=== PATIENT | male | born 1950 | race Two or more races ===

== ENCOUNTER 2018-04-08 14:06 | Inpatient (IN) | payer MEDICARE, OTHER ==
[~2018-04-08] VITALS: Ht 180.3 cm; Wt 68.1 kg
[2018-04-08] MEDS ORDERED: FOLIC ACID 1 MG, THIAMINE HCL 100 MG, MVI, ADULT NO.1 10 ML in DEXTROSE 5% WATER 1,000 ML IV ONE ×4 (17:15)
[2018-04-08 17:27] LABS: BASOPHILS % 0.3 % (0.0-2.0); EOSINOPHILS % 0.3 % (0.0-5.0); HEMATOCRIT. 39.5 % (42.0-52.0); HEMOGLOBIN. 12.2 g/dL (14.0-18.0); MEAN CORPUSCULAR HEMOGLOBIN 23.1 pg (28.0-32.0); MEAN CORPUSCULAR VOLUME 74.8 fL (80.0-94.0); MEAN PLATELET VOLUME 8.6 fl (7.4-10.4); MONOCYTES % 6.4 % (2.0-8.0); PLATELET 265 x1000/uL (130-400); RED BLOOD CELL COUNT 5.27 mill/uL (4.7-6.1); RED CELL DISTRIBUTION WIDTH 16.4 % (11.6-14.6)
[2018-04-08 17:33] LABS: CHLORIDE 106 mEq/L (98-107)
[2018-04-08 17:35] LABS: PARTIAL THROMBOPLASTIN TIME 35.2 sec (23.4-31.0)
[2018-04-08 17:37] LABS: ETHANOL BLOOD < 10 mg/dL
[2018-04-08 17:41] LABS: CREATINE KINASE 382 IU/L (39-308)
[2018-04-08 17:44] LABS: CREATINE KINASE MB FRACTION 20.9 ng/mL (0.5-3.6)
[2018-04-08] MEDS ORDERED: LORAZEPAM 2MG/ML CPJ IV ONE (18:30)
[2018-04-08] MEDS ORDERED: HYDROCODONE/APAP 7.5/325MG 1 TAB TABLET PO PRN (20:00)
[2018-04-08] MEDS ORDERED: HYDRALAZINE 20MG/ML VIAL IV PRN (20:00)
[2018-04-08] MEDS ORDERED: DIPHENHYDRAMINE 50MG/ML VIAL IV PRN (20:00)
[2018-04-08] MEDS ORDERED: IPRATROPIUM/ALBUTEROL 0.5-3(2.5)MG/3ML NEB INH PRN (20:00)
[2018-04-08] MEDS ORDERED: MVI, ADULT NO.1 10 ML, FOLIC ACID 1 MG, THIAMINE HCL 100 MG in SODIUM CHLORIDE 0.9% 1,0... IV SCH ×4 (20:00)
[2018-04-08] MEDS ORDERED: DOCUSATE SODIUM 100MG CAPSULE PO PRN (20:00)
[2018-04-08] MEDS ORDERED: CLONIDINE 0.1MG TABLET PO PRN (20:00)
[2018-04-08] MEDS ORDERED: MAGNESIUM/ALUMINUM HYDROXIDE/SIMETHICONE 30ML UDC PO PRN (20:00)
[2018-04-08] MEDS ORDERED: LEVOFLOXACIN 500MG PREMIX 100 ML IV SCH (20:00)
[2018-04-08] MEDS ORDERED: LORAZEPAM 2MG/ML CPJ IV PRN ×2 (20:00→20:15)
[2018-04-08] MEDS ORDERED: HYDROMORPHONE HCL/PF 2MG/ML CPJ IV PRN (20:00)
[2018-04-08] MEDS ORDERED: NA PHOS,M-B/NA PHOS,DI-BA ENEMA 118ML PR PRN (20:00)
[2018-04-08] MEDS ORDERED: ACETAMINOPHEN 325MG TABLET PO PRN (20:00)
[2018-04-08] MEDS ORDERED: ONDANSETRON HCL 4MG/2ML INJ IV PRN (20:00)
[2018-04-08] MEDS ORDERED: GUAIFENESIN 200MG/10ML SUGAR FREE UDC PO PRN (20:00)
[2018-04-08 21:19] LABS: CLARITY URINE CLOUDY (CLEAR); COLOR URINE YELLOW (YELLOW); KETONES URINE NEGATIVE (NEGATIVE); LEUKOCYTE ESTERASE URINE 3+ (NEGATIVE); NITRITE URINE POSITIVE (NEGATIVE); OCCULT BLOOD URINE 1+ (NEGATIVE); PH URINE 7.5 (4.5-8.0); PROTEIN URINE 2+ (NEGATIVE); SPECIFIC GRAVITY URINE 1.015 (1.005-1.030); UROBILINOGEN URINE 0.2 E.U./dL (0.2-1.0)
[2018-04-08 21:35] LABS: *COCAINE SCREEN URINE NEGATIVE (NEGATIVE)
[2018-04-08 21:36] LABS: *BARBITURATES SCREEN URINE NEGATIVE (NEGATIVE); CANNABINOID URINE SCREEN NEGATIVE (NEGATIVE); METHADONE URINE SCREEN NEGATIVE (NEGATIVE); OPIATES URINE SCREEN NEGATIVE (NEGATIVE); PHENCYCLIDINE URINE SCREEN NEGATIVE (NEGATIVE)
[2018-04-08 21:37] LABS: *AMPHETAMINES SCREEN URINE NEGATIVE (NEGATIVE); *BENZODIAZEPINES SCREEN URINE NEGATIVE (NEGATIVE)
[2018-04-08 22:00] VITALS: BP 151/78
[2018-04-08 22:45] VITALS: BP 166/93
[2018-04-08] MEDS: SODIUM CHLORIDE 0.45% 1,000 ML IV SCH (23:02)
[2018-04-08] MEDS: SODIUM CHLORIDE 0.9% INJ 3ML FLUSH IVF SCH (23:03)
[2018-04-08] MEDS: LEVOFLOXACIN 500MG PREMIX 100 ML IV SCH (23:04)
[2018-04-08 23:21] LABS: CREATINE KINASE 377 IU/L (39-308)
[2018-04-08 23:22] LABS: CREATINE KINASE MB FRACTION 21.5 ng/mL (0.5-3.6)
[2018-04-09] VITALS: BP 151/78
[2018-04-09 04:00] VITALS: BP 144/89
[2018-04-09] MEDS: SODIUM CHLORIDE 0.9% INJ 3ML FLUSH IVF SCH ×3 (06:48→21:25)
[2018-04-09 06:50] LABS: HEMATOCRIT. 37.6 % (42.0-52.0); HEMOGLOBIN. 11.9 g/dL (14.0-18.0); MEAN CORPUSCULAR HEMOGLOBIN 23.3 pg (28.0-32.0); MEAN CORPUSCULAR VOLUME 73.8 fL (80.0-94.0); MEAN PLATELET VOLUME 8.9 fl (7.4-10.4); PLATELET 242 x1000/uL (130-400); RED BLOOD CELL COUNT 5.09 mill/uL (4.7-6.1); RED CELL DISTRIBUTION WIDTH 16.1 % (11.6-14.6)
[2018-04-09 06:54] LABS: CHLORIDE 102 mEq/L (98-107)
[2018-04-09 07:12] LABS: LDL CHOLESTEROL 60 mg/dL (5-100)
[2018-04-09 07:14] LABS: CREATINE KINASE 355 IU/L (39-308)
[2018-04-09 07:15] LABS: CREATINE KINASE MB FRACTION 20.4 ng/mL (0.5-3.6); HDL CHOLESTEROL 97 mg/dL (40-59)
[2018-04-09 07:16] LABS: T4 FREE 1.14 ng/dL (0.76-1.46)
[2018-04-09 08:00] VITALS: BP 136/74
[2018-04-09] MEDS: ENOXAPARIN 40MG/0.4ML SYR SUBCUT SCH (08:17)
[2018-04-09 11:47] LABS: PLATELET ESTIMATE NORMAL
[2018-04-09 12:00] VITALS: BP 131/68
[2018-04-09] MEDS: SODIUM CHLORIDE 0.45% 1,000 ML IV SCH (14:25)
[2018-04-09 16:55] VITALS: BP 119/68
[2018-04-09 20:00] VITALS: BP 156/82
[2018-04-10] VITALS: BP 146/72
[2018-04-10] MEDS: LEVOFLOXACIN 500MG PREMIX 100 ML IV SCH ×2 (00:19→22:58)
[2018-04-10 04:00] VITALS: BP 110/52
[2018-04-10] MEDS: SODIUM CHLORIDE 0.45% 1,000 ML IV SCH ×2 (04:15→18:00)
[2018-04-10] MEDS: SODIUM CHLORIDE 0.9% INJ 3ML FLUSH IVF SCH ×3 (05:03→22:08)
[2018-04-10 08:00] VITALS: BP 127/68
[2018-04-10] MEDS: ENOXAPARIN 40MG/0.4ML SYR SUBCUT SCH (10:06)
[2018-04-10 12:00] VITALS: BP 133/79
[2018-04-10 20:00] VITALS: BP 164/88
[2018-04-11] VITALS: BP 151/79
[2018-04-11 04:00] VITALS: BP 108/68
[2018-04-11] MEDS: SODIUM CHLORIDE 0.9% INJ 3ML FLUSH IVF SCH (06:43)
[2018-04-11] MEDS: SODIUM CHLORIDE 0.45% 1,000 ML IV SCH (07:20)
[2018-04-11 08:00] VITALS: BP 155/101
[2018-04-11] MEDS: ENOXAPARIN 40MG/0.4ML SYR SUBCUT SCH (09:13)
[2018-04-11 12:12] VITALS: BP 134/77
[2018-04-11 16:00] VITALS: BP 133/79
[2018-04-11 18:58] VITALS: BP 133/79
== END 2018-04-11 19:47 | DRG 605 ==
LOC: EDBD 14:36 → ER 14:36 → 8WST 18:28 → EDBEDREQTM 18:30 → EDBEDREQ 18:30 → ENRESERV 20:17
PROVIDERS: ADMIT Internal Medicine; ATTEND Internal Medicine
DX: S60.222A Contusion of left hand, initial encounter (principal); M62.82 Rhabdomyolysis; R26.81 Unsteadiness on feet; F17.210 Nicotine dependence, cigarettes, uncomplicated; R29.6 Repeated falls; D72.829 Elevated white blood cell count, unspecified; W18.30XA Fall on same level, unspecified, initial encounter; Y93.89 Activity, other specified; Z59.0 Homelessness; Y92.89 Other specified places as the place of occurrence of the external cause; Y99.8 Other external cause status
CPT/HCPCS: 36415; 71045; 72170; 73130; 80061; 80305; 82550; 82553; 83735; 83880; 84439; 84443; 84484; 86850; 86900; 87077; 87186; 93005; 96374; 97116; 97162; 99285; G0482; J1200; J1650; J1956; J2060; J3411; J3490; J7070

== ENCOUNTER 2019-03-28 15:30 | Inpatient (IN) | payer MEDICARE, MEDICAID ==
[~2019-03-28] VITALS: Ht 175.3 cm; Wt 70.3 kg
[2019-03-28 16:24] LABS: BASOPHILS % 2.1 % (0.0-2.0); EOSINOPHILS % 3.9 % (0.0-5.0); HEMATOCRIT. 40.7 % (42.0-52.0); HEMOGLOBIN. 12.8 g/dL (14.0-18.0); LYMPHOCYTES % 38.2 % (20.0-50.0); MEAN CORPUSCULAR HEMOGLOBIN 22.3 pg (28.0-32.0); MEAN PLATELET VOLUME 7.7 fl (7.4-10.4); MONOCYTES % 11.8 % (2.0-8.0); PLATELET 257 x1000/uL (130-400); RED BLOOD CELL COUNT 5.73 mill/uL (4.7-6.1); RED CELL DISTRIBUTION WIDTH 18.3 % (11.6-14.6)
[2019-03-28 16:32] LABS: CHLORIDE 106 mEq/L (98-107)
[2019-03-28 16:37] LABS: ETHANOL BLOOD < 10 mg/dL
[2019-03-28 16:59] LABS: CLARITY URINE CLOUDY (CLEAR); COLOR URINE YELLOW (YELLOW); KETONES URINE NEGATIVE (NEGATIVE); LEUKOCYTE ESTERASE URINE 3+ (NEGATIVE); NITRITE URINE POSITIVE (NEGATIVE); OCCULT BLOOD URINE TRACE (NEGATIVE); PROTEIN URINE 1+ (NEGATIVE); SPECIFIC GRAVITY URINE 1.009 (1.005-1.030); UROBILINOGEN URINE 0.2 E.U./dL (0.2-1.0)
[2019-03-28 17:10] LABS: *AMPHETAMINES SCREEN URINE NEGATIVE (NEGATIVE); CANNABINOID URINE SCREEN NEGATIVE (NEGATIVE); METHADONE URINE SCREEN NEGATIVE (NEGATIVE); OPIATES URINE SCREEN NEGATIVE (NEGATIVE); PHENCYCLIDINE URINE SCREEN NEGATIVE (NEGATIVE)
[2019-03-28 17:11] LABS: *BARBITURATES SCREEN URINE NEGATIVE (NEGATIVE); *BENZODIAZEPINES SCREEN URINE NEGATIVE (NEGATIVE); *COCAINE SCREEN URINE NEGATIVE (NEGATIVE)
[2019-03-28] MEDS ORDERED: ACETAMINOPHEN 325MG TABLET PO PRN (18:00)
[2019-03-28] MEDS ORDERED: DOCUSATE SODIUM 100MG CAPSULE PO PRN (18:00)
[2019-03-28] MEDS ORDERED: IPRATROPIUM/ALBUTEROL 0.5-3(2.5)MG/3ML NEB NEB PRN (18:00)
[2019-03-28] MEDS ORDERED: NA PHOS,M-B/NA PHOS,DI-BA ENEMA 118ML PR PRN (18:00)
[2019-03-28] MEDS ORDERED: HYDROCODONE/ACETAMINOPHEN 5/325MG TABLET PO PRN (18:00)
[2019-03-28] MEDS ORDERED: CLONIDINE 0.1MG TABLET PO PRN (18:00)
[2019-03-28] MEDS ORDERED: DIPHENHYDRAMINE 50MG/ML VIAL IV PRN (18:00)
[2019-03-28] MEDS ORDERED: ONDANSETRON HCL 4MG/2ML INJ IV PRN (18:00)
[2019-03-28] MEDS ORDERED: MAGNESIUM/ALUMINUM HYDROXIDE/SIMETHICONE 30ML UDC PO PRN (18:00)
[2019-03-28] MEDS ORDERED: GUAIFENESIN 200MG/10ML SUGAR FREE UDC PO PRN (18:00)
[2019-03-28] MEDS ORDERED: MORPHINE SULFATE 2 MG/ML CPJ (NOT FOR IM USE) IV PRN (18:00)
[2019-03-28] MEDS ORDERED: LORAZEPAM 2MG/ML CPJ IV PRN (18:00)
[2019-03-28] MEDS: SODIUM CHLORIDE 0.45% 1,000 ML IV SCH (18:28)
[2019-03-28] MEDS ORDERED: LEVOFLOXACIN 500MG PREMIX 100 ML IV NR (19:00)
[2019-03-28] MEDS ORDERED: ENOXAPARIN 40MG/0.4ML SYR SUBCUT SCH (19:00)
[2019-03-28 21:11] LABS: CHLORIDE 107 mEq/L (98-107)
[2019-03-29 00:45] VITALS: BP 158/80
[2019-03-29] MEDS ORDERED: MAG-4 PO (03:01)
[2019-03-29] MEDS ORDERED: MULT-1146 PO (03:01)
[2019-03-29] MEDS ORDERED: CLON-457 PO (03:01)
[2019-03-29] MEDS ORDERED: GABA-531 PO (03:01)
[2019-03-29] MEDS ORDERED: DOCU-138 PO (03:01)
[2019-03-29] MEDS ORDERED: TOPUD PO (03:01)
[2019-03-29 04:00] VITALS: BP 140/88
[2019-03-29 08:00] VITALS: BP 122/73
[2019-03-29 08:19] LABS: BASOPHILS % 0.9 % (0.0-2.0); EOSINOPHILS % 5.3 % (0.0-5.0); HEMATOCRIT. 39.5 % (42.0-52.0); HEMOGLOBIN. 12.5 g/dL (14.0-18.0); LYMPHOCYTES % 45.9 % (20.0-50.0); MEAN CORPUSCULAR HEMOGLOBIN 22.1 pg (28.0-32.0); MEAN CORPUSCULAR VOLUME 69.9 fL (80.0-94.0); MEAN PLATELET VOLUME 8.4 fl (7.4-10.4); MONOCYTES % 11.5 % (2.0-8.0); NEUTROPHILS % 36.4 % (40.0-76.0); PLATELET 269 x1000/uL (130-400); RED BLOOD CELL COUNT 5.65 mill/uL (4.7-6.1)
[2019-03-29 08:31] LABS: CHLORIDE 107 mEq/L (98-107)
[2019-03-29 08:39] LABS: LDL CHOLESTEROL 115 mg/dL (5-100)
[2019-03-29 08:40] LABS: HDL CHOLESTEROL 52 mg/dL (40-59)
[2019-03-29] MEDS: ASPIRIN 81MG EC TABLET PO SCH (09:13)
[2019-03-29] MEDS: ENOXAPARIN 40MG/0.4ML SYR SUBCUT SCH (09:14)
[2019-03-29 12:00] VITALS: BP 160/67
[2019-03-29 13:00] LABS: PLATELET ESTIMATE NORMAL
[2019-03-29 16:00] VITALS: BP 133/83
[2019-03-29] MEDS: SODIUM CHLORIDE 0.45% 1,000 ML IV SCH (16:29)
[2019-03-29 20:00] VITALS: BP 130/76
[2019-03-29] MEDS ORDERED: LEVOFLOXACIN 500MG PREMIX 100 ML IV SCH (20:00)
[2019-03-29 20:28] LABS: VITAMIN B12 SERUM 615 pg/mL (211-911)
[2019-03-29] MEDS: AMLODIPINE 5MG TABLET PO SCH (20:54)
[2019-03-29] MEDS: ATORVASTATIN CALCIUM 20MG TABLET PO SCH (20:54)
[2019-03-29] MEDS: LEVOFLOXACIN 500MG PREMIX 100 ML IV SCH (21:54)
[2019-03-30] VITALS: BP 137/62
[2019-03-30 04:00] VITALS: BP 133/70
[2019-03-30 08:00] VITALS: BP 137/67
[2019-03-30] MEDS: ASPIRIN 81MG EC TABLET PO SCH (09:03)
[2019-03-30] MEDS: AMLODIPINE 5MG TABLET PO SCH ×2 (09:03→20:34)
[2019-03-30] MEDS: ENOXAPARIN 40MG/0.4ML SYR SUBCUT SCH (09:04)
[2019-03-30 12:00] VITALS: BP 121/74
[2019-03-30] MEDS: SODIUM CHLORIDE 0.45% 1,000 ML IV SCH (12:35)
[2019-03-30 16:00] VITALS: BP 140/70
[2019-03-30 20:00] VITALS: BP 134/62
[2019-03-30] MEDS: ATORVASTATIN CALCIUM 20MG TABLET PO SCH (20:34)
[2019-03-30] MEDS: LEVOFLOXACIN 500MG PREMIX 100 ML IV SCH (20:34)
[2019-03-31] VITALS: BP 143/97
[2019-03-31 04:00] VITALS: BP 159/93
[2019-03-31] MEDS: SODIUM CHLORIDE 0.45% 1,000 ML IV SCH (05:56)
[2019-03-31 07:34] LABS: EOSINOPHILS % 3.8 % (0.0-5.0); HEMATOCRIT. 42.9 % (42.0-52.0); LYMPHOCYTES % 30.8 % (20.0-50.0); MEAN CORPUSCULAR HEMOGLOBIN 22.7 pg (28.0-32.0); MEAN CORPUSCULAR VOLUME 69.8 fL (80.0-94.0); MEAN PLATELET VOLUME 8.3 fl (7.4-10.4); MONOCYTES % 13.3 % (2.0-8.0); NEUTROPHILS % 51.1 % (40.0-76.0); PLATELET 294 x1000/uL (130-400); RED BLOOD CELL COUNT 6.15 mill/uL (4.7-6.1); RED CELL DISTRIBUTION WIDTH 17.9 % (11.6-14.6)
[2019-03-31 08:00] VITALS: BP 147/94
[2019-03-31 08:35] LABS: CHLORIDE 103 mEq/L (98-107)
[2019-03-31] MEDS: ENOXAPARIN 40MG/0.4ML SYR SUBCUT SCH (09:42)
[2019-03-31] MEDS: AMLODIPINE 5MG TABLET PO SCH ×2 (09:42→21:19)
[2019-03-31] MEDS: ASPIRIN 81MG EC TABLET PO SCH (09:42)
[2019-03-31 20:00] VITALS: BP 137/96
[2019-03-31 20:24] VITALS: BP 141/68
[2019-03-31] MEDS: ATORVASTATIN CALCIUM 20MG TABLET PO SCH (21:19)
[2019-03-31] MEDS: LEVOFLOXACIN 500MG PREMIX 100 ML IV SCH (21:19)
== END 2019-03-31 23:10 | DRG 689 ==
LOC: ER 15:30 → 5WST 16:47 → ENRESERV 22:46
PROVIDERS: ADMIT Internal Medicine; ATTEND Internal Medicine
DX: N39.0 Urinary tract infection, site not specified (principal); G93.41 Metabolic encephalopathy; E46 Unspecified protein-calorie malnutrition; R65.10 Systemic inflammatory response syndrome (SIRS) of non-infectious origin without acute organ dysfunction; I10 Essential (primary) hypertension; E78.00 Pure hypercholesterolemia, unspecified; E78.5 Hyperlipidemia, unspecified; B96.89 Other specified bacterial agents as the cause of diseases classified elsewhere; D64.9 Anemia, unspecified; Z79.899 Other long term (current) drug therapy; Z86.73 Personal history of transient ischemic attack (TIA), and cerebral infarction without residual deficits; Z68.22 Body mass index [BMI] 22.0-22.9, adult
CPT/HCPCS: 36415; 71045; 80048; 80053; 80061; 80305; 80320; 81003; 82607; 82962; 83605; 83735; 84443; 84484; 85025; 87077; 87186; 93005; 96361; 96365; 96372; J1650; J1956; J2060; G0480

== ENCOUNTER 2020-08-06 20:22 | Inpatient (IN) | payer MEDICARE, MEDICAID ==
[~2020-08-06] VITALS: Ht 180.3 cm; Wt 63.5 kg
[~2020-08-06 20:22] MED LIST: CLON-457 PO; DOCU-138 PO; GABA-532 PO; MAG-4 PO; MULT-1146 PO; TOPUD PO
[2020-08-06] MEDS ORDERED: SODIUM CHLORIDE 0.9% 1,000 ML IV ONE (21:30)
[2020-08-07 00:04] LABS: BASOPHILS % 0.4 % (0.0-2.0); HEMOGLOBIN. 14.7 g/dL (14.0-18.0); LYMPHOCYTES % 18.5 % (20.0-50.0); MEAN CORPUSCULAR HEMOGLOBIN 22.2 pg (28.0-32.0); MEAN CORPUSCULAR VOLUME 73.9 fL (80.0-94.0); MEAN PLATELET VOLUME 9.2 fl (7.4-10.4); MONOCYTES % 12.6 % (2.0-8.0); NEUTROPHILS % 67.5 % (40.0-76.0); PLATELET 350 x1000/uL (130-400); RED BLOOD CELL COUNT 6.63 mill/uL (4.7-6.1); RED CELL DISTRIBUTION WIDTH 16.6 % (11.6-14.6)
[2020-08-07 00:12] LABS: CHLORIDE 114 mEq/L (98-107)
[2020-08-07] MEDS ORDERED: SODIUM POLYSTYRENE SULFONATE 15 G/60 ML BOT PO NR (18:15)
[2020-08-07] MEDS ORDERED: DOCUSATE SODIUM 100MG CAPSULE PO PRN (18:15)
[2020-08-07] MEDS ORDERED: HYDROCODONE/ACETAMINOPHEN 5/325MG TABLET PO PRN (18:15)
[2020-08-07] MEDS ORDERED: CLONIDINE 0.1MG TABLET PO PRN (18:15)
[2020-08-07] MEDS ORDERED: IPRATROPIUM/ALBUTEROL 0.5-3(2.5)MG/3ML NEB HHN PRN (18:15)
[2020-08-07] MEDS ORDERED: DIPHENHYDRAMINE 50MG/ML VIAL IV PRN (18:15)
[2020-08-07] MEDS ORDERED: GUAIFENESIN 200MG/10ML SUGAR FREE UDC PO PRN (18:15)
[2020-08-07] MEDS ORDERED: MAGNESIUM/ALUMINUM HYDROXIDE/SIMETHICONE 30ML UDC PO PRN (18:15)
[2020-08-07] MEDS ORDERED: ENOXAPARIN 40MG/0.4ML SYR SUBCUT SCH (18:15)
[2020-08-07] MEDS ORDERED: ACETAMINOPHEN 325MG TABLET PO PRN (18:15)
[2020-08-07] MEDS ORDERED: LORAZEPAM 2MG/ML CPJ IV PRN (18:15)
[2020-08-07] MEDS ORDERED: SODIUM CHLORIDE 0.45% 1,000 ML IV SCH (18:15)
[2020-08-07] MEDS ORDERED: HYDRALAZINE 20MG/ML VIAL IV PRN (18:15)
[2020-08-07] MEDS ORDERED: MORPHINE SULFATE 2 MG/ML CPJ (NOT FOR IM USE) IV PRN (18:15)
[2020-08-07] MEDS ORDERED: CRAN500T2 MT (18:27)
[2020-08-07] MEDS ORDERED: BUSP5TAB3 PO (18:27)
[2020-08-07] MEDS ORDERED: ENOXAPARIN 30MG/0.3ML SYR SUBCUT SCH (18:30)
[2020-08-07 20:00] VITALS: BP 120/80
[2020-08-07] MEDS: SODIUM CHLORIDE 0.45% 1,000 ML IV SCH (21:52)
[2020-08-07] MEDS: SODIUM CHLORIDE 0.9% INJ 3ML FLUSH IVF SCH (21:52)
[2020-08-07] MEDS: ENOXAPARIN 30MG/0.3ML SYR SUBCUT SCH (21:55)
[2020-08-08] VITALS: BP 115/83
[2020-08-08 00:26] LABS: CREATINE KINASE 101 IU/L (39-308)
[2020-08-08 00:27] LABS: CREATINE KINASE MB FRACTION < 1.0 ng/mL (0.5-3.6)
[2020-08-08 04:00] VITALS: BP 126/78
[2020-08-08] MEDS: SODIUM CHLORIDE 0.9% INJ 3ML FLUSH IVF SCH ×3 (06:00→21:24)
[2020-08-08 07:26] LABS: CLARITY URINE TURBID (CLEAR); COLOR URINE RED (YELLOW); KETONES URINE NEGATIVE (NEGATIVE); LEUKOCYTE ESTERASE URINE 3+ (NEGATIVE); NITRITE URINE POSITIVE (NEGATIVE); OCCULT BLOOD URINE 3+ (NEGATIVE); PROTEIN URINE 2+ (NEGATIVE); SPECIFIC GRAVITY URINE 1.012 (1.005-1.030)
[2020-08-08 08:00] VITALS: BP 110/72
[2020-08-08 08:38] LABS: BASOPHILS % 0.6 % (0.0-2.0); EOSINOPHILS % 2.9 % (0.0-5.0); HEMATOCRIT. 41.3 % (42.0-52.0); HEMOGLOBIN. 12.8 g/dL (14.0-18.0); LYMPHOCYTES % 18.8 % (20.0-50.0); MEAN CORPUSCULAR HEMOGLOBIN 22.3 pg (28.0-32.0); MEAN PLATELET VOLUME 9.4 fl (7.4-10.4); MONOCYTES % 10.9 % (2.0-8.0); NEUTROPHILS % 66.8 % (40.0-76.0); PLATELET 322 x1000/uL (130-400); RED BLOOD CELL COUNT 5.75 mill/uL (4.7-6.1)
[2020-08-08 08:50] LABS: CHLORIDE 107 mEq/L (98-107)
[2020-08-08 09:00] LABS: CREATINE KINASE 94 IU/L (39-308)
[2020-08-08 09:03] LABS: CREATINE KINASE MB FRACTION < 1.0 ng/mL (0.5-3.6)
[2020-08-08 12:00] VITALS: BP 125/20
[2020-08-08] MEDS: SODIUM CHLORIDE 0.45% 1,000 ML IV SCH (14:26)
[2020-08-08 16:00] VITALS: BP 116/72
[2020-08-08 20:00] VITALS: BP 109/64
[2020-08-08] MEDS: ENOXAPARIN 30MG/0.3ML SYR SUBCUT SCH (21:24)
[2020-08-09] VITALS: BP 105/68
[2020-08-09 04:00] VITALS: BP 119/64
[2020-08-09] MEDS: SODIUM CHLORIDE 0.9% INJ 3ML FLUSH IVF SCH ×3 (06:08→21:19)
[2020-08-09 07:41] LABS: BASOPHILS % 0.5 % (0.0-2.0); EOSINOPHILS % 3.2 % (0.0-5.0); HEMATOCRIT. 39.3 % (42.0-52.0); HEMOGLOBIN. 12.1 g/dL (14.0-18.0); LYMPHOCYTES % 19.4 % (20.0-50.0); MEAN CORPUSCULAR HEMOGLOBIN 22.2 pg (28.0-32.0); MEAN CORPUSCULAR VOLUME 72.1 fL (80.0-94.0); MEAN PLATELET VOLUME 9.5 fl (7.4-10.4); MONOCYTES % 12.4 % (2.0-8.0); NEUTROPHILS % 64.5 % (40.0-76.0); PLATELET 287 x1000/uL (130-400); RED BLOOD CELL COUNT 5.45 mill/uL (4.7-6.1); RED CELL DISTRIBUTION WIDTH 16.2 % (11.6-14.6)
[2020-08-09 08:00] VITALS: BP 115/60
[2020-08-09] MEDS: SODIUM CHLORIDE 0.45% 1,000 ML IV SCH ×2 (08:00→10:15)
[2020-08-09 08:33] LABS: PHOSPHORUS 3.1 mg/dL (2.5-4.9)
[2020-08-09 12:00] VITALS: BP 114/68
[2020-08-09 16:00] VITALS: BP 120/64
[2020-08-09 20:00] VITALS: BP 128/68
[2020-08-09] MEDS: ENOXAPARIN 30MG/0.3ML SYR SUBCUT SCH (21:19)
[2020-08-10] VITALS: BP 124/62
[2020-08-10] MEDS: ONDANSETRON HCL 4MG/2ML INJ IV PRN (00:20)
[2020-08-10 04:00] VITALS: BP 104/62
[2020-08-10] MEDS: SODIUM CHLORIDE 0.45% 1,000 ML IV SCH ×2 (04:08→14:08)
[2020-08-10] MEDS: SODIUM CHLORIDE 0.9% INJ 3ML FLUSH IVF SCH ×3 (05:29→21:17)
[2020-08-10 08:00] VITALS: BP 136/76
[2020-08-10 08:01] LABS: HEMATOCRIT. 36.2 % (42.0-52.0); HEMOGLOBIN. 11.2 g/dL (14.0-18.0); MEAN CORPUSCULAR HEMOGLOBIN 22.1 pg (28.0-32.0); MEAN CORPUSCULAR VOLUME 71.3 fL (80.0-94.0); MEAN PLATELET VOLUME 9.2 fl (7.4-10.4); PLATELET 269 x1000/uL (130-400); RED BLOOD CELL COUNT 5.08 mill/uL (4.7-6.1); RED CELL DISTRIBUTION WIDTH 16.1 % (11.6-14.6)
[2020-08-10 08:16] LABS: PHOSPHORUS 2.2 mg/dL (2.5-4.9)
[2020-08-10 09:07] LABS: ANTI-NUCLEAR ANTIBODIES DIRECT Positive (Negative)
[2020-08-10 12:00] VITALS: BP 118/67
[2020-08-10] MEDS ORDERED: CEFTRIAXONE 1 G PREMIX 50 ML IV SCH (12:00)
[2020-08-10] MEDS: CEFTRIAXONE 1,000 MG in DEXTROSE 5% WATER 50 ML IV SCH (14:09)
[2020-08-10 15:03] LABS: PLATELET ESTIMATE NORMAL
[2020-08-10 16:00] VITALS: BP 116/69
[2020-08-10 20:00] VITALS: BP 127/59
[2020-08-10] MEDS: ENOXAPARIN 40MG/0.4ML SYR SUBCUT SCH (21:17)
[2020-08-11] VITALS: BP 127/61
[2020-08-11] MEDS: SODIUM CHLORIDE 0.45% 1,000 ML IV SCH ×3 (01:41→19:09)
[2020-08-11 04:00] VITALS: BP 99/67
[2020-08-11 04:09] LABS: COMPLEMENT TOTAL CH50 > 60 U/mL (>41)
[2020-08-11] MEDS: SODIUM CHLORIDE 0.9% INJ 3ML FLUSH IVF SCH ×3 (05:08→20:13)
[2020-08-11 07:07] LABS: HEMATOCRIT. 35.8 % (42.0-52.0); HEMOGLOBIN. 11.4 g/dL (14.0-18.0); MEAN CORPUSCULAR HEMOGLOBIN 22.4 pg (28.0-32.0); MEAN CORPUSCULAR VOLUME 70.2 fL (80.0-94.0); MEAN PLATELET VOLUME 9.8 fl (7.4-10.4); PLATELET 212 x1000/uL (130-400); RED CELL DISTRIBUTION WIDTH 15.6 % (11.6-14.6)
[2020-08-11 08:00] VITALS: BP 119/67
[2020-08-11 08:09] LABS: A/G RATIO 0.4 (0.7-1.7); ALBUMIN 2.2 g/dL (2.9-4.4); ALPHA-1-GLOBULIN 0.5 g/dL (0.0-0.4); BETA GLOBULIN 1.2 g/dL (0.7-1.3); GAMMA GLOBULINS 2.1 g/dL (0.4-1.8); GLOBULIN TOTAL 4.9 g/dL (2.2-3.9); M-SPIKE Not Observed g/dL (Not Observed); TOTAL PROTEIN SERUM 7.1 g/dL (6.0-8.5)
[2020-08-11 12:00] VITALS: BP 132/80
[2020-08-11] MEDS: CEFTRIAXONE 1,000 MG in DEXTROSE 5% WATER 50 ML IV SCH (13:30)
[2020-08-11 14:15] LABS: PLATELET ESTIMATE NORMAL
[2020-08-11 16:00] VITALS: BP 112/67
[2020-08-11 20:00] VITALS: BP 116/72
[2020-08-11] MEDS: ENOXAPARIN 40MG/0.4ML SYR SUBCUT SCH (20:14)
[2020-08-12] VITALS: BP 101/57
[2020-08-12 04:00] VITALS: BP 110/62
[2020-08-12] MEDS: SODIUM CHLORIDE 0.9% INJ 3ML FLUSH IVF SCH ×3 (05:30→20:50)
[2020-08-12] MEDS: SODIUM CHLORIDE 0.45% 1,000 ML IV SCH ×2 (05:30→19:06)
[2020-08-12 08:00] VITALS: BP 123/56
[2020-08-12] MEDS ORDERED: SODIUM PHOS,M-BASIC-D-BASIC 15 MM in DEXT 5% WATER 245 ML IV SCH (11:00)
[2020-08-12] MEDS: SULFAMETHOXAZOLE/TRIMETHOPRIM 800/160MG TABLET PO SCH ×2 (11:24→20:50)
[2020-08-12] MEDS: ONDANSETRON HCL 4MG/2ML INJ IV PRN (11:24)
[2020-08-12 12:00] VITALS: BP 116/69
[2020-08-12 16:00] VITALS: BP 130/72
[2020-08-12] MEDS: CEFTRIAXONE 1,000 MG in DEXTROSE 5% WATER 50 ML IV SCH (16:40)
[2020-08-12 20:00] VITALS: BP 106/62
[2020-08-12] MEDS: ENOXAPARIN 40MG/0.4ML SYR SUBCUT SCH (20:50)
[2020-08-13] VITALS: BP 104/65
[2020-08-13 04:00] VITALS: BP 120/57
[2020-08-13 05:38] LABS: HEMATOCRIT. 33.4 % (42.0-52.0); HEMOGLOBIN. 10.3 g/dL (14.0-18.0); MEAN CORPUSCULAR HEMOGLOBIN 21.7 pg (28.0-32.0); MEAN CORPUSCULAR VOLUME 70.4 fL (80.0-94.0); MEAN PLATELET VOLUME 8.4 fl (7.4-10.4); PLATELET 251 x1000/uL (130-400); RED BLOOD CELL COUNT 4.75 mill/uL (4.7-6.1); RED CELL DISTRIBUTION WIDTH 16.3 % (11.6-14.6)
[2020-08-13 05:55] LABS: PHOSPHORUS 2.3 mg/dL (2.5-4.9)
[2020-08-13] MEDS: SODIUM CHLORIDE 0.9% INJ 3ML FLUSH IVF SCH ×3 (05:55→20:48)
[2020-08-13] MEDS: SODIUM CHLORIDE 0.45% 1,000 ML IV SCH ×2 (05:55→22:20)
[2020-08-13 08:00] VITALS: BP 115/70
[2020-08-13] MEDS: SULFAMETHOXAZOLE/TRIMETHOPRIM 800/160MG TABLET PO SCH ×3 (09:00→20:48)
[2020-08-13 12:00] VITALS: BP 117/66
[2020-08-13] MEDS ORDERED: KCL 20MEQ/100ML PREMIX 100 ML IV NR (13:00)
[2020-08-13] MEDS ORDERED: POTASSIUM PHOS,M-BASIC-D-BASIC 15 MMOL in DEXT 5% WATER 245 ML IV NR (13:30)
[2020-08-13 14:32] LABS: PLATELET ESTIMATE NORMAL
[2020-08-13] MEDS: CEFTRIAXONE 1,000 MG in DEXTROSE 5% WATER 50 ML IV SCH (15:13)
[2020-08-13 16:00] VITALS: BP 104/60
[2020-08-13 20:00] VITALS: BP 113/71
[2020-08-13] MEDS: ENOXAPARIN 40MG/0.4ML SYR SUBCUT SCH (20:48)
[2020-08-13] MEDS: ONDANSETRON HCL 4MG/2ML INJ IV PRN (22:20)
[2020-08-14] VITALS: BP 113/62
[2020-08-14 04:00] VITALS: BP 121/75
[2020-08-14] MEDS: SODIUM CHLORIDE 0.9% INJ 3ML FLUSH IVF SCH ×3 (05:26→22:00)
[2020-08-14 07:14] LABS: HEMATOCRIT. 34.3 % (42.0-52.0); HEMOGLOBIN. 10.8 g/dL (14.0-18.0); MEAN CORPUSCULAR HEMOGLOBIN 22.4 pg (28.0-32.0); MEAN CORPUSCULAR VOLUME 71.1 fL (80.0-94.0); MEAN PLATELET VOLUME 8.5 fl (7.4-10.4); PLATELET 247 x1000/uL (130-400); RED BLOOD CELL COUNT 4.82 mill/uL (4.7-6.1); RED CELL DISTRIBUTION WIDTH 16.2 % (11.6-14.6)
[2020-08-14 08:00] VITALS: BP 115/66
[2020-08-14] MEDS: SULFAMETHOXAZOLE/TRIMETHOPRIM 800/160MG TABLET PO SCH ×2 (09:00→19:50)
[2020-08-14] MEDS ORDERED: KCL 20MEQ/100ML PREMIX 100 ML IV NR (10:30)
[2020-08-14 12:00] VITALS: BP 115/65
[2020-08-14] MEDS: SODIUM CHLORIDE 0.45% 1,000 ML IV SCH ×2 (12:37→23:53)
[2020-08-14] MEDS: CEFTRIAXONE 1,000 MG in DEXTROSE 5% WATER 50 ML IV SCH (13:34)
[2020-08-14 14:00] LABS: PLATELET ESTIMATE NORMAL
[2020-08-14 16:00] VITALS: BP 122/63
[2020-08-14] MEDS: ENOXAPARIN 40MG/0.4ML SYR SUBCUT SCH (19:49)
[2020-08-14 20:00] VITALS: BP 128/65
[2020-08-15] VITALS: BP 111/54
[2020-08-15 04:00] VITALS: BP 113/58
[2020-08-15] MEDS: SODIUM CHLORIDE 0.9% INJ 3ML FLUSH IVF SCH ×2 (06:23→14:00)
[2020-08-15 08:00] VITALS: BP 113/71
[2020-08-15] MEDS: SULFAMETHOXAZOLE/TRIMETHOPRIM 800/160MG TABLET PO SCH (08:34)
[2020-08-15 12:00] VITALS: BP 125/64
== END 2020-08-15 18:35 | DRG 871 ==
LOC: ER 20:22 → EDBEDREQ 21:35 → 5WST 08-07 01:38 → EDBEDREQ 08-07 01:39 → EDBEDREQDT 08-07 01:39 → EDBEDREQTM 08-07 01:39 → ENRESERV 08-07 16:57
PROVIDERS: ADMIT Internal Medicine; ATTEND Internal Medicine
DX: A41.9 Sepsis, unspecified organism (principal); N17.0 Acute kidney failure with tubular necrosis; N39.0 Urinary tract infection, site not specified; E86.0 Dehydration; I12.9 Hypertensive chronic kidney disease with stage 1 through stage 4 chronic kidney disease, or unspecified chronic kidney disease; J44.9 Chronic obstructive pulmonary disease, unspecified; R09.02 Hypoxemia; E87.5 Hyperkalemia; R31.9 Hematuria, unspecified; Z20.822 Contact with and (suspected) exposure to COVID-19; N18.2 Chronic kidney disease, stage 2 (mild); G40.909 Epilepsy, unspecified, not intractable, without status epilepticus; N20.0 Calculus of kidney; Z87.891 Personal history of nicotine dependence; Z86.73 Personal history of transient ischemic attack (TIA), and cerebral infarction without residual deficits
CPT/HCPCS: 36415; 71045; 76705; 80048; 80053; 81003; 82550; 82553; 82570; 83735; 83935; 83970; 84100; 84155; 84156; 84165; 84300; 84484; 85025; 86038; 86160; 86162; 87077; 87186; 87426; 93005; 97116; 97162; 97166; 97530; 99285; C1893; J0696; J1200; J1650; J2060; J2270; J2405; J3480; J3490; J7030; J7060

== ENCOUNTER 2022-01-28 15:38 | Inpatient (IN) | payer MEDICARE, MEDICAID ==
[~2022-01-28] VITALS: Ht 180.3 cm; Wt 71.2 kg
[~2022-01-28 15:38] MED LIST changes: +BUSP5TAB3 PO; +CRAN500T4 MT; -DOCU-138 PO; -MAG-4 PO; -TOPUD PO
[2022-01-28 18:00] LABS: BASOPHILS % 1.1 % (0.0-2.0); EOSINOPHILS % 4.6 % (0.0-5.0); HEMATOCRIT. 43.1 % (42.0-52.0); HEMOGLOBIN. 13.5 g/dL (14.0-18.0); LYMPHOCYTES % 38.5 % (20.0-50.0); MEAN CORPUSCULAR HEMOGLOBIN 22.9 pg (28.0-32.0); MEAN CORPUSCULAR VOLUME 72.8 fL (80.0-94.0); MEAN PLATELET VOLUME 7.5 fl (7.4-10.4); NEUTROPHILS % 42.8 % (40.0-76.0); PLATELET 326 x1000/uL (130-400); RED BLOOD CELL COUNT 5.92 mill/uL (4.7-6.1); RED CELL DISTRIBUTION WIDTH 17.3 % (11.6-14.6)
[2022-01-28 18:09] LABS: CHLORIDE 102 mEq/L (98-107)
[2022-01-28 20:21] LABS: CLARITY URINE CLOUDY (CLEAR); COLOR URINE YELLOW (YELLOW); KETONES URINE NEGATIVE (NEGATIVE); LEUKOCYTE ESTERASE URINE 3+ (NEGATIVE); NITRITE URINE POSITIVE (NEGATIVE); OCCULT BLOOD URINE 3+ (NEGATIVE); PROTEIN URINE 2+ (NEGATIVE); SPECIFIC GRAVITY URINE 1.014 (1.005-1.030); UROBILINOGEN URINE 0.2 E.U./dL (0.2-1.0)
[2022-01-28 20:30] VITALS: BP 138/96
[2022-01-28] MEDS ORDERED: DOCUSATE SODIUM 100MG CAPSULE PO PRN (23:45)
[2022-01-28] MEDS ORDERED: ONDANSETRON HCL 4MG/2ML INJ IV PRN (23:45)
[2022-01-28] MEDS ORDERED: HYDROCODONE/ACETAMINOPHEN 5/325MG TABLET PO PRN (23:45)
[2022-01-28] MEDS ORDERED: CLONIDINE 0.1MG TABLET PO PRN (23:45)
[2022-01-28] MEDS ORDERED: IPRATROPIUM/ALBUTEROL 0.5-3(2.5)MG/3ML NEB HHN PRN (23:45)
[2022-01-28] MEDS ORDERED: GUAIFENESIN 200MG/10ML SUGAR FREE UDC PO PRN (23:45)
[2022-01-28] MEDS ORDERED: MAGNESIUM/ALUMINUM HYDROXIDE/SIMETHICONE 30ML UDC PO PRN (23:45)
[2022-01-28] MEDS ORDERED: ACETAMINOPHEN 325MG TABLET PO PRN ×2 (23:45)
[2022-01-29] VITALS: BP 143/92
[2022-01-29] MEDS ORDERED: CEFTRIAXONE 1 G PREMIX 50 ML IV SCH
[2022-01-29] MEDS: SODIUM CHLORIDE 0.9% 1,000 ML IV SCH ×2 (00:13→12:29)
[2022-01-29 00:17] LABS: TOTAL IRON BINDING CAPACITY 251 ug/dL (250-450)
[2022-01-29 00:34] LABS: FERRITIN 173 ng/mL (22-322)
[2022-01-29] MEDS: CEFTRIAXONE 1,000 MG in DEXTROSE 5% WATER 50 ML IV SCH (01:14)
[2022-01-29 01:25] LABS: VITAMIN B12 SERUM 828 pg/mL (211-911)
[2022-01-29] MEDS ORDERED: NALOXONE HCL 0.4MG/ML VIAL IV PRN (02:15)
[2022-01-29 04:00] VITALS: BP 131/86
[2022-01-29 07:04] LABS: BASOPHILS % 0.7 % (0.0-2.0); EOSINOPHILS % 5.1 % (0.0-5.0); HEMATOCRIT. 43.1 % (42.0-52.0); HEMOGLOBIN. 13.5 g/dL (14.0-18.0); LYMPHOCYTES % 37.8 % (20.0-50.0); MEAN CORPUSCULAR HEMOGLOBIN 22.8 pg (28.0-32.0); MEAN CORPUSCULAR VOLUME 72.8 fL (80.0-94.0); MEAN PLATELET VOLUME 7.7 fl (7.4-10.4); MONOCYTES % 11.5 % (2.0-8.0); NEUTROPHILS % 44.9 % (40.0-76.0); PLATELET 290 x1000/uL (130-400); RED BLOOD CELL COUNT 5.92 mill/uL (4.7-6.1); RED CELL DISTRIBUTION WIDTH 17.5 % (11.6-14.6)
[2022-01-29 08:00] VITALS: BP 155/96
[2022-01-29] MEDS: FERROUS SULFATE 325MG TABLET PO SCH ×3 (08:22→17:42)
[2022-01-29] MEDS: FAMOTIDINE 20MG TABLET PO SCH ×2 (08:22→21:04)
[2022-01-29] MEDS: BUSPIRONE HCL 5MG TABLET PO SCH ×2 (08:22→21:04)
[2022-01-29] MEDS: ENOXAPARIN 40MG/0.4ML SYR SUBCUT SCH (08:23)
[2022-01-29] MEDS: AMLODIPINE 10MG TABLET PO SCH (08:23)
[2022-01-29 08:41] LABS: CHLORIDE 106 mEq/L (98-107)
[2022-01-29 08:53] LABS: HDL CHOLESTEROL 47 mg/dL (40-59); LDL CHOLESTEROL 126 mg/dL (5-100); PHOSPHORUS 2.7 mg/dL (2.5-4.9)
[2022-01-29] MEDS ORDERED: CRANBERRY EXTRACT MT SCH (09:00)
[2022-01-29 12:00] VITALS: BP 142/79
[2022-01-29 16:00] VITALS: BP 124/77
[2022-01-29 20:00] VITALS: BP 149/84
[2022-01-30] VITALS: BP 148/91
[2022-01-30] MEDS: CEFTRIAXONE 1,000 MG in DEXTROSE 5% WATER 50 ML IV SCH (01:16)
[2022-01-30 04:00] VITALS: BP 159/106
[2022-01-30 06:36] LABS: BASOPHILS % 0.4 % (0.0-2.0); HEMATOCRIT. 42.9 % (42.0-52.0); HEMOGLOBIN. 13.7 g/dL (14.0-18.0); MEAN CORPUSCULAR HEMOGLOBIN 23.1 pg (28.0-32.0); MEAN CORPUSCULAR VOLUME 72.6 fL (80.0-94.0); MEAN PLATELET VOLUME 7.7 fl (7.4-10.4); MONOCYTES % 11.6 % (2.0-8.0); PLATELET 309 x1000/uL (130-400); RED BLOOD CELL COUNT 5.91 mill/uL (4.7-6.1); RED CELL DISTRIBUTION WIDTH 17.4 % (11.6-14.6)
[2022-01-30 07:42] LABS: CHLORIDE 103 mEq/L (98-107)
[2022-01-30 08:00] VITALS: BP 156/98
[2022-01-30] MEDS: ENOXAPARIN 40MG/0.4ML SYR SUBCUT SCH (09:40)
[2022-01-30] MEDS: FERROUS SULFATE 325MG TABLET PO SCH ×3 (09:40→18:14)
[2022-01-30] MEDS: FAMOTIDINE 20MG TABLET PO SCH ×2 (09:40→21:55)
[2022-01-30] MEDS: AMLODIPINE 10MG TABLET PO SCH (09:42)
[2022-01-30] MEDS: BUSPIRONE HCL 5MG TABLET PO SCH ×2 (09:42→21:55)
[2022-01-30 12:00] VITALS: BP 148/89
[2022-01-30 16:00] VITALS: BP 148/89
[2022-01-30 20:00] VITALS: BP 128/86
[2022-01-31] VITALS: BP 126/47
[2022-01-31] MEDS: CEFTRIAXONE 1,000 MG in DEXTROSE 5% WATER 50 ML IV SCH (01:09)
[2022-01-31 04:00] VITALS: BP 132/72
[2022-01-31 08:35] LABS: BASOPHILS % 0.8 % (0.0-2.0); EOSINOPHILS % 6.1 % (0.0-5.0); HEMATOCRIT. 42.8 % (42.0-52.0); HEMOGLOBIN. 13.5 g/dL (14.0-18.0); LYMPHOCYTES % 30.3 % (20.0-50.0); MEAN CORPUSCULAR HEMOGLOBIN 22.9 pg (28.0-32.0); MEAN CORPUSCULAR VOLUME 72.5 fL (80.0-94.0); MONOCYTES % 11.8 % (2.0-8.0); RED CELL DISTRIBUTION WIDTH 16.9 % (11.6-14.6)
[2022-01-31] MEDS: FAMOTIDINE 20MG TABLET PO SCH (08:51)
[2022-01-31] MEDS: FERROUS SULFATE 325MG TABLET PO SCH ×2 (08:51→12:20)
[2022-01-31] MEDS: BUSPIRONE HCL 5MG TABLET PO SCH (08:51)
[2022-01-31] MEDS: AMLODIPINE 10MG TABLET PO SCH (08:51)
[2022-01-31] MEDS: ENOXAPARIN 40MG/0.4ML SYR SUBCUT SCH (08:51)
[2022-01-31 09:01] LABS: CHLORIDE 104 mEq/L (98-107)
[2022-01-31 09:55] LABS: PLATELET 293 x1000/uL (130-400)
[2022-01-31] MEDS ORDERED: CEFD300C3 MT (12:50)
[2022-01-31] MEDS ORDERED: FERR-63 PO (12:50)
[2022-01-31] MEDS ORDERED: AMLO10TA80 PO (12:50)
[2022-01-31 14:55] VITALS: BP 146/89
== END 2022-01-31 16:57 | DRG 640 ==
LOC: ER 15:38 → 3WST 18:00
PROVIDERS: ADMIT Internal Medicine; ATTEND Internal Medicine
DX: E87.5 Hyperkalemia (principal); G93.41 Metabolic encephalopathy; N39.0 Urinary tract infection, site not specified; E44.1 Mild protein-calorie malnutrition; N17.9 Acute kidney failure, unspecified; D50.9 Iron deficiency anemia, unspecified; E78.5 Hyperlipidemia, unspecified; J44.9 Chronic obstructive pulmonary disease, unspecified; G40.909 Epilepsy, unspecified, not intractable, without status epilepticus; I11.9 Hypertensive heart disease without heart failure; F41.9 Anxiety disorder, unspecified; F17.210 Nicotine dependence, cigarettes, uncomplicated; Z68.21 Body mass index [BMI] 21.0-21.9, adult; Z86.73 Personal history of transient ischemic attack (TIA), and cerebral infarction without residual deficits
CPT/HCPCS: 36415; 71045; 80053; 80061; 81003; 82607; 82728; 82746; 83540; 83550; 83735; 84100; 85025; 93005; 99285; J0696; J1650; J7060

== ENCOUNTER 2023-12-27 16:36 | Inpatient (IN) | payer MEDICARE, MEDICAID ==
[~2023-12-27] VITALS: Ht 177.8 cm; Wt 53.1 kg
[~2023-12-27 16:36] MED LIST changes: +AMLO10TA80 PO; +ASPI-1497 PO; +ATOR40TA70 PO; -CLON-457 PO; +CLON-493 PO; +DOCU-138 PO; +FAMO20TA8 PO; +POLY17PO43 PO; +TAMS-11 PO
[2023-12-27 16:44] VITALS: O2SAT 98
[2023-12-27 21:07] LABS: BASOPHILS % 0.6 % (0.0-2.0); EOSINOPHILS % 2.4 % (0.0-5.0); HEMATOCRIT. 45.7 % (42.0-52.0); HEMOGLOBIN. 13.6 g/dL (14.0-18.0); LYMPHOCYTES % 28.2 % (20.0-50.0); MEAN CORPUSCULAR HEMOGLOBIN 22.1 pg (28.0-32.0); MEAN CORPUSCULAR HGB CONC 29.7 g/dL (31.0-37.0); MEAN CORPUSCULAR VOLUME 74.4 fL (80.0-94.0); MEAN PLATELET VOLUME 9.5 fl (7.4-10.4); MONOCYTES % 10.1 % (2.0-8.0); NEUTROPHILS % 58.7 % (40.0-76.0); PLATELET 394 x1000/uL (130-400); RED BLOOD CELL COUNT 6.14 mill/uL (4.7-6.1); RED CELL DISTRIBUTION WIDTH 23.6 % (11.6-14.6); WHITE BLOOD COUNT 16.2 x1000/uL (4.5-11.0)
[2023-12-27 21:08] LABS: ADD RBC MORPHOLOGY YES; DIFFERENTIAL COMMENT 1
[2023-12-27 21:20] LABS: CHLORIDE 129 mEq/L (98-107); POTASSIUM 4.8 mEq/L (3.5-5.1)
[2023-12-27 21:21] LABS: CALCIUM 10.6 mg/dL (8.7-10.4); CARBON DIOXIDE 20 mEq/L (21-32)
[2023-12-27 21:26] LABS: GLUCOSE 110 mg/dL (70-105); LACTIC ACID 2.1 mmol/L (0.4-2.0); TROPONIN I HIGH SENSITIVITY 6 ng/L (3.0-53); UREA NITROGEN BLOOD 74 mg/dL (9-23)
[2023-12-27 21:28] LABS: CREATINE KINASE 38 IU/L (46-171)
[2023-12-27 21:31] LABS: THYROID STIMULATING HORMONE 2.21 uIU/mL (0.55-4.78)
[2023-12-27 21:33] LABS: CREATININE 2.6 mg/dL (0.6-1.3); ETHANOL BLOOD < 10 mg/dL (<10); SODIUM 159 mEq/L (136-145)
[2023-12-27 21:40] LABS: ANISOCYTOSIS 2+; HYPOCHROMASIA 1+; MICROCYTOSIS 2+; OVALOCYTES 1+; PLATELET ESTIMATE NORMAL
[2023-12-27 21:41] LABS: GIANT PLATELETS FEW
[2023-12-27] MEDS: CEFTRIAXONE 1GM/50ML 50 ML IV ONE (22:24)
[2023-12-27] MEDS: LACTATED RINGERS 1,000 ML IV SCH (23:28)
[2023-12-27] MEDS ORDERED: IPRATROPIUM/ALBUTEROL 0.5-3(2.5)MG/3ML NEB HHN PRN (23:30)
[2023-12-27] MEDS ORDERED: MAGNESIUM/ALUMINUM HYDROXIDE/SIMETHICONE 30ML UDC PO PRN (23:30)
[2023-12-27] MEDS ORDERED: ACETAMINOPHEN 325MG TABLET PO PRN ×2 (23:30)
[2023-12-27] MEDS ORDERED: DOCUSATE SODIUM 100MG CAPSULE PO PRN (23:30)
[2023-12-27 23:57] LABS: CLARITY URINE TURBID (CLEAR); COLOR URINE YELLOW (YELLOW); GLUCOSE URINE NEGATIVE (NEGATIVE); KETONES URINE NEGATIVE (NEGATIVE); LEUKOCYTE ESTERASE URINE 3+ (NEGATIVE); NITRITE URINE POSITIVE (NEGATIVE); OCCULT BLOOD URINE 3+ (NEGATIVE); PH URINE 7.5 (4.5-8.0); PROTEIN URINE 3+ (NEGATIVE); SPECIFIC GRAVITY URINE 1.015 (1.005-1.030); UROBILINOGEN URINE 0.2 E.U./dL (0.2-1.0)
[2023-12-28] VITALS: BP 103/71; PULSE 91; RESP 19; TEMP 36.61404; TEMP 36.6404; O2SAT 100
[2023-12-28 00:06] LABS: *AMPHETAMINES SCREEN URINE NEGATIVE (NEGATIVE); *BARBITURATES SCREEN URINE NEGATIVE (NEGATIVE); *BENZODIAZEPINES SCREEN URINE NEGATIVE (NEGATIVE); *COCAINE SCREEN URINE NEGATIVE (NEGATIVE); CANNABINOID URINE SCREEN NEGATIVE (NEGATIVE); ECSTASY MDMA SCREEN URINE NEGATIVE (NEGATIVE); METHADONE URINE SCREEN NEGATIVE (NEGATIVE); OPIATES URINE SCREEN NEGATIVE (NEGATIVE); PHENCYCLIDINE URINE SCREEN NEGATIVE (NEGATIVE)
[2023-12-28 00:11] LABS: BACTERIA URINE 4+; RBC URINE TNTC /hpf (0-2); SQUAMOUS EPITHELIAL CELL URINE FEW /lpf (RARE/1+); WBC URINE TNTC /hpf (0-2)
[2023-12-28 04:00] VITALS: BP 105/64; PULSE 78; RESP 16; TEMP 36.50292; O2SAT 98
[2023-12-28 08:50] LABS: BASOPHILS % 0.5 % (0.0-2.0); EOSINOPHILS % 3.4 % (0.0-5.0); HEMATOCRIT. 41.9 % (42.0-52.0); HEMOGLOBIN. 12.4 g/dL (14.0-18.0); LYMPHOCYTES % 21.4 % (20.0-50.0); MEAN CORPUSCULAR HEMOGLOBIN 21.5 pg (28.0-32.0); MEAN CORPUSCULAR HGB CONC 29.7 g/dL (31.0-37.0); MEAN CORPUSCULAR VOLUME 72.6 fL (80.0-94.0); MEAN PLATELET VOLUME 9.5 fl (7.4-10.4); MONOCYTES % 10.7 % (2.0-8.0); PLATELET 401 x1000/uL (130-400); RED BLOOD CELL COUNT 5.77 mill/uL (4.7-6.1); RED CELL DISTRIBUTION WIDTH 23.4 % (11.6-14.6); WHITE BLOOD COUNT 16.1 x1000/uL (4.5-11.0)
[2023-12-28 09:03] LABS: DIFFERENTIAL COMMENT 1
[2023-12-28 09:04] LABS: ADD RBC MORPHOLOGY NO; CARBON DIOXIDE 21 mEq/L (21-32); CHLORIDE 130 mEq/L (98-107); POTASSIUM 4.5 mEq/L (3.5-5.1)
[2023-12-28 09:06] LABS: CREATINE KINASE MB FRACTION < 0.5 ng/mL (0.5-3.6); TROPONIN I HIGH SENSITIVITY 6 ng/L (3.0-53)
[2023-12-28 09:09] LABS: CREATINE KINASE 43 IU/L (46-171); CREATININE 2.5 mg/dL (0.6-1.3)
[2023-12-28 09:10] LABS: GLUCOSE 99 mg/dL (70-105); TRIGLYCERIDE 79 mg/dL (0-150); UREA NITROGEN BLOOD 75 mg/dL (9-23)
[2023-12-28 09:11] LABS: ALANINE AMINOTRANSFERASE 98 IU/L (10-49); ALBUMIN 3.7 g/dL (3.2-4.8); ASPARTATE AMINOTRANSFERASE 62 IU/L (<34); LDL CHOLESTEROL 85 mg/dL (5-100); T4 FREE 0.85 ng/dL (0.89-1.76)
[2023-12-28 09:12] LABS: BILIRUBIN TOTAL 0.2 mg/dL (0.1-1.0); CHOLESTEROL 139 mg/dL (<200); HDL CHOLESTEROL 33 mg/dL (>55); PROTEIN TOTAL 8.4 g/dL (6.0-8.3)
[2023-12-28 09:15] LABS: BILIRUBIN DIRECT < 0.1 mg/dL (<=3.0)
[2023-12-28 09:18] LABS: SODIUM 162 mEq/L (136-145)
[2023-12-28] MEDS: ENOXAPARIN 30MG/0.3ML SYR SUBCUT SCH (09:38)
[2023-12-28] MEDS: FAMOTIDINE 20MG/2ML VIAL IV SCH (09:39)
[2023-12-28] MEDS: DEXTROSE 5% WATER 1,000 ML IV SCH ×2 (09:39→18:03)
[2023-12-28] MEDS ORDERED: CEFTRIAXONE 1GM/50ML 50 ML IV SCH (10:00)
[2023-12-28 12:00] VITALS: BP 112/72; PULSE 74; RESP 17; TEMP 36.50292; O2SAT 99
[2023-12-28 16:00] VITALS: BP 103/69; PULSE 73; RESP 17; TEMP 36.55848; O2SAT 99
[2023-12-28 17:10] LABS: BASOPHILS % 0.4 % (0.0-2.0); EOSINOPHILS % 2.9 % (0.0-5.0); HEMATOCRIT. 41.8 % (42.0-52.0); HEMOGLOBIN. 12.1 g/dL (14.0-18.0); LYMPHOCYTES % 22.9 % (20.0-50.0); MEAN CORPUSCULAR HEMOGLOBIN 21.5 pg (28.0-32.0); MEAN CORPUSCULAR VOLUME 74.1 fL (80.0-94.0); MONOCYTES % 9.4 % (2.0-8.0); NEUTROPHILS % 64.4 % (40.0-76.0); PLATELET 370 x1000/uL (130-400); RED BLOOD CELL COUNT 5.65 mill/uL (4.7-6.1); RED CELL DISTRIBUTION WIDTH 23.3 % (11.6-14.6); WHITE BLOOD COUNT 12.9 x1000/uL (4.5-11.0)
[2023-12-28 17:13] LABS: ADD RBC MORPHOLOGY NO; DIFFERENTIAL COMMENT 1
[2023-12-28 17:26] LABS: CHLORIDE 128 mEq/L (98-107); POTASSIUM 3.9 mEq/L (3.5-5.1)
[2023-12-28 17:27] LABS: CARBON DIOXIDE 22 mEq/L (21-32)
[2023-12-28 17:32] LABS: CREATININE 2.4 mg/dL (0.6-1.3); GLUCOSE 116 mg/dL (70-105)
[2023-12-28 17:33] LABS: UREA NITROGEN BLOOD 70 mg/dL (9-23)
[2023-12-28 17:35] LABS: PHOSPHORUS 3.5 mg/dL (2.5-4.9)
[2023-12-28 17:37] LABS: CREATINE KINASE MB FRACTION 1.1 ng/mL (0.5-3.6)
[2023-12-28 17:38] LABS: SODIUM 158 mEq/L (136-145)
[2023-12-28] MEDS: ASPIRIN 81MG TABLET PO SCH (18:11)
[2023-12-28 20:00] VITALS: BP 133/95; PULSE 84; RESP 18; TEMP 36.22512; O2SAT 95
[2023-12-28] MEDS: CEFTRIAXONE 1GM/50ML 50 ML IV SCH (20:12)
[2023-12-28] MEDS: ATORVASTATIN CALCIUM 40MG TABLET PO SCH (21:31)
[2023-12-29] VITALS: BP 120/72; PULSE 81; RESP 18; TEMP 36.6696; O2SAT 97
[2023-12-29 04:00] VITALS: BP 103/67; PULSE 76; RESP 17; TEMP 36.3918; O2SAT 96
[2023-12-29 08:00] VITALS: BP 116/62; PULSE 71; RESP 17; TEMP 36.50292; O2SAT 98
[2023-12-29 12:00] VITALS: BP 123/63; PULSE 70; RESP 17; TEMP 36.55848; O2SAT 100
[2023-12-29 13:22] LABS: BASOPHILS % 0.4 % (0.0-2.0); EOSINOPHILS % 3.5 % (0.0-5.0); HEMATOCRIT. 40.9 % (42.0-52.0); HEMOGLOBIN. 12.5 g/dL (14.0-18.0); LYMPHOCYTES % 28.7 % (20.0-50.0); MEAN CORPUSCULAR HEMOGLOBIN 22.3 pg (28.0-32.0); MEAN CORPUSCULAR HGB CONC 30.5 g/dL (31.0-37.0); MEAN CORPUSCULAR VOLUME 72.9 fL (80.0-94.0); NEUTROPHILS % 59.4 % (40.0-76.0); PLATELET 344 x1000/uL (130-400); RED BLOOD CELL COUNT 5.61 mill/uL (4.7-6.1); RED CELL DISTRIBUTION WIDTH 23.3 % (11.6-14.6); WHITE BLOOD COUNT 9.8 x1000/uL (4.5-11.0)
[2023-12-29 13:24] LABS: DIFFERENTIAL COMMENT 1
[2023-12-29 13:31] LABS: POTASSIUM 3.3 mEq/L (3.5-5.1)
[2023-12-29 13:33] LABS: CALCIUM 9.2 mg/dL (8.7-10.4)
[2023-12-29 13:37] LABS: CREATININE 2.1 mg/dL (0.6-1.3)
[2023-12-29 16:00] VITALS: BP 120/67; PULSE 69; RESP 18; TEMP 36.50292; O2SAT 100
[2023-12-29] MEDS: KCL 20MEQ/100ML PREMIX 100 ML IV NR (16:25)
[2023-12-29 17:18] LABS: PHOSPHORUS 3.6 mg/dL (2.5-4.9)
[2023-12-29 20:00] VITALS: BP 151/94; PULSE 87; RESP 18; TEMP 36.22512; O2SAT 99
[2023-12-29 20:29] LABS: POTASSIUM 3.7 mEq/L (3.5-5.1)
[2023-12-29 20:31] LABS: CALCIUM 9.4 mg/dL (8.7-10.4)
[2023-12-29 20:36] LABS: CREATININE 2.1 mg/dL (0.6-1.3)
[2023-12-30] VITALS: BP 116/75; PULSE 80; RESP 18; TEMP 36.28068; O2SAT 100
[2023-12-30 04:00] VITALS: BP 151/94; PULSE 87; RESP 19; TEMP 36.22512; O2SAT 98
[2023-12-30 06:36] LABS: BASOPHILS % 0.5 % (0.0-2.0); EOSINOPHILS % 3.6 % (0.0-5.0); HEMATOCRIT. 38.7 % (42.0-52.0); HEMOGLOBIN. 11.5 g/dL (14.0-18.0); LYMPHOCYTES % 29.7 % (20.0-50.0); MEAN CORPUSCULAR HEMOGLOBIN 21.7 pg (28.0-32.0); MEAN CORPUSCULAR HGB CONC 29.6 g/dL (31.0-37.0); MEAN CORPUSCULAR VOLUME 73.1 fL (80.0-94.0); MEAN PLATELET VOLUME 9.4 fl (7.4-10.4); MONOCYTES % 10.3 % (2.0-8.0); NEUTROPHILS % 55.9 % (40.0-76.0); PLATELET 348 x1000/uL (130-400); RED CELL DISTRIBUTION WIDTH 22.5 % (11.6-14.6); WHITE BLOOD COUNT 9.5 x1000/uL (4.5-11.0)
[2023-12-30 06:53] LABS: POTASSIUM 3.5 mEq/L (3.5-5.1)
[2023-12-30 06:54] LABS: CALCIUM 9.2 mg/dL (8.7-10.4)
[2023-12-30 06:58] LABS: CREATININE 1.9 mg/dL (0.6-1.3)
[2023-12-30 07:43] LABS: DIFFERENTIAL COMMENT 1
[2023-12-30 08:00] VITALS: BP 135/69; PULSE 88; RESP 20; TEMP 36.05844; O2SAT 95
[2023-12-30 12:00] VITALS: BP 133/92; PULSE 72; RESP 20; TEMP 36.50292; O2SAT 96
[2023-12-30 16:00] VITALS: BP 110/78; PULSE 70; RESP 20; TEMP 36.114; O2SAT 96
[2023-12-30 20:00] VITALS: BP 126/70; PULSE 79; RESP 20; TEMP 36.9474; O2SAT 98
[2023-12-30] MEDS: MEROPENEM 1G/100ML 100 ML IV SCH (21:34)
[2023-12-30 22:02] LABS: POTASSIUM 3.3 mEq/L (3.5-5.1)
[2023-12-30 22:03] LABS: CALCIUM 9.1 mg/dL (8.7-10.4)
[2023-12-30 22:08] LABS: CREATININE 1.7 mg/dL (0.6-1.3)
[2023-12-30] MEDS: DEXT 5%/0.45% NACL 1000ML 1,000 ML IV SCH (23:15)
[2023-12-31] VITALS: BP_SYST 105; BP_SYST 130; BP_DIAS 69; BP_DIAS 78; PULSE 91; PULSE 96; RESP 18; RESP 19; TEMP 36.55848; TEMP 36.89184; O2SAT 79; O2SAT 95
[2023-12-31 04:00] VITALS: BP 126/80; PULSE 68; RESP 18; TEMP 36.83628; O2SAT 98
[2023-12-31 08:28] VITALS: BP 114/77; PULSE 91; RESP 19; TEMP 36.28068; O2SAT 97
[2023-12-31 09:30] LABS: BASOPHILS % 0.4 % (0.0-2.0); EOSINOPHILS % 2.4 % (0.0-5.0); HEMATOCRIT. 39.8 % (42.0-52.0); HEMOGLOBIN. 11.7 g/dL (14.0-18.0); LYMPHOCYTES % 26.3 % (20.0-50.0); MEAN CORPUSCULAR HEMOGLOBIN 22.3 pg (28.0-32.0); MEAN CORPUSCULAR HGB CONC 29.5 g/dL (31.0-37.0); MEAN CORPUSCULAR VOLUME 75.7 fL (80.0-94.0); MEAN PLATELET VOLUME 9.3 fl (7.4-10.4); MONOCYTES % 10.4 % (2.0-8.0); NEUTROPHILS % 60.5 % (40.0-76.0); PLATELET 297 x1000/uL (130-400); RED BLOOD CELL COUNT 5.26 mill/uL (4.7-6.1); RED CELL DISTRIBUTION WIDTH 23.3 % (11.6-14.6); WHITE BLOOD COUNT 10.7 x1000/uL (4.5-11.0)
[2023-12-31 09:32] LABS: ADD RBC MORPHOLOGY NO; DIFFERENTIAL COMMENT 1
[2023-12-31 09:41] LABS: CHLORIDE 117 mEq/L (98-107); POTASSIUM 3.4 mEq/L (3.5-5.1); SODIUM 145 mEq/L (136-145)
[2023-12-31 09:42] LABS: CALCIUM 9.2 mg/dL (8.7-10.4); CARBON DIOXIDE 17 mEq/L (21-32)
[2023-12-31 09:47] LABS: CREATININE 1.7 mg/dL (0.6-1.3); GLUCOSE 91 mg/dL (70-105)
[2023-12-31 09:48] LABS: UREA NITROGEN BLOOD 30 mg/dL (9-23)
[2023-12-31 09:49] LABS: ALBUMIN 3.5 g/dL (3.2-4.8); PHOSPHORUS 3.1 mg/dL (2.5-4.9)
[2023-12-31 12:00] VITALS: BP 101/68; PULSE 92; RESP 20; TEMP 36.28068; O2SAT 97
[2023-12-31] MEDS: POTASSIUM CHLORIDE 20MEQ TABLET SR PO SCH (14:28)
[2023-12-31 16:00] VITALS: BP 105/58; PULSE 101; RESP 20; TEMP 36.33624; O2SAT 97
[2023-12-31] MEDS: FERROUS SULFATE 325MG TABLET PO SCH (16:39)
[2023-12-31] MEDS: ONDANSETRON HCL 4MG/2ML INJ IV PRN (18:05)
[2023-12-31 20:00] VITALS: BP 101/66; PULSE 99; RESP 19; TEMP 36.50292; O2SAT 95
[2024-01-01 04:00] VITALS: BP 114/60; PULSE 73; RESP 18; TEMP 36.33624; O2SAT 97
[2024-01-01 08:00] VITALS: BP 102/58; PULSE 76; RESP 18; TEMP 36.28068; O2SAT 95
[2024-01-01] MEDS: POTASSIUM CHLORIDE 20MEQ TABLET SR PO NR (10:45)
[2024-01-01 12:00] VITALS: BP 112/56; PULSE 79; RESP 18; TEMP 36.33624; O2SAT 98
[2024-01-01] MEDS ORDERED: LIDOCAINE HCL 1% 10 MG/ML 10ML VIAL ONE (14:25)
[2024-01-01 16:00] VITALS: BP 116/60; PULSE 80; RESP 18; TEMP 36.16956; O2SAT 98
[2024-01-02 04:00] VITALS: BP 117/76; PULSE 129; RESP 23; TEMP 36.22512; O2SAT 98
[2024-01-02 08:00] VITALS: BP 117/73; PULSE 93; RESP 20; TEMP 36.33624; O2SAT 98
[2024-01-02 09:54] LABS: BASOPHILS % 0.3 % (0.0-2.0); EOSINOPHILS % 0.6 % (0.0-5.0); HEMATOCRIT. 38.2 % (42.0-52.0); HEMOGLOBIN. 11.2 g/dL (14.0-18.0); MEAN CORPUSCULAR HEMOGLOBIN 21.5 pg (28.0-32.0); MEAN CORPUSCULAR HGB CONC 29.4 g/dL (31.0-37.0); MEAN CORPUSCULAR VOLUME 73.2 fL (80.0-94.0); MEAN PLATELET VOLUME 9.1 fl (7.4-10.4); MONOCYTES % 9.1 % (2.0-8.0); PLATELET 320 x1000/uL (130-400); RED BLOOD CELL COUNT 5.22 mill/uL (4.7-6.1); RED CELL DISTRIBUTION WIDTH 23.4 % (11.6-14.6); WHITE BLOOD COUNT 13.1 x1000/uL (4.5-11.0)
[2024-01-02 10:00] LABS: DIFFERENTIAL COMMENT 1
[2024-01-02 10:01] LABS: ADD RBC MORPHOLOGY NO
[2024-01-02 10:02] LABS: CHLORIDE 116 mEq/L (98-107); POTASSIUM 3.4 mEq/L (3.5-5.1); SODIUM 147 mEq/L (136-145)
[2024-01-02 10:03] LABS: CALCIUM 9.7 mg/dL (8.7-10.4); CARBON DIOXIDE 22 mEq/L (21-32)
[2024-01-02 10:08] LABS: CREATININE 1.6 mg/dL (0.6-1.3); GLUCOSE 87 mg/dL (70-105); UREA NITROGEN BLOOD 25 mg/dL (9-23)
[2024-01-02 10:10] LABS: PHOSPHORUS 2.4 mg/dL (2.5-4.9)
[2024-01-02 12:00] VITALS: BP 114/68; PULSE 85; RESP 20; TEMP 36.114; O2SAT 96
[2024-01-02] MEDS: POTASSIUM PHOSPHATE 15 MMOL in DEXT 5% WATER 245 ML IV NR (12:00)
[2024-01-02] MEDS: HALOPERIDOL LACTATE 5MG/ML VIAL IM PRN (13:45)
[2024-01-02 16:00] VITALS: BP 110/57; PULSE 96; RESP 20; TEMP 36.61404; O2SAT 95
[2024-01-03] VITALS: BP 130/89; PULSE 102; RESP 18; TEMP 36.6696; TEMP 36.66960; O2SAT 98
[2024-01-03 06:59] LABS: POTASSIUM 3.7 mEq/L (3.5-5.1)
[2024-01-03 07:01] LABS: CALCIUM 9.3 mg/dL (8.7-10.4)
[2024-01-03 07:05] LABS: CREATININE 1.6 mg/dL (0.6-1.3)
[2024-01-03 07:19] LABS: HEPATITIS B SURFACE ANTIGEN NEGATIVE (Negative)
[2024-01-03 07:23] LABS: BASOPHILS % 0.3 % (0.0-2.0); EOSINOPHILS % 3.2 % (0.0-5.0); HEMATOCRIT. 37.3 % (42.0-52.0); HEMOGLOBIN. 11.2 g/dL (14.0-18.0); LYMPHOCYTES % 22.4 % (20.0-50.0); MEAN CORPUSCULAR HEMOGLOBIN 21.8 pg (28.0-32.0); MEAN CORPUSCULAR HGB CONC 29.9 g/dL (31.0-37.0); MEAN CORPUSCULAR VOLUME 73.1 fL (80.0-94.0); MEAN PLATELET VOLUME 9.5 fl (7.4-10.4); MONOCYTES % 9.9 % (2.0-8.0); NEUTROPHILS % 64.2 % (40.0-76.0); PLATELET 304 x1000/uL (130-400); RED CELL DISTRIBUTION WIDTH 23.1 % (11.6-14.6); WHITE BLOOD COUNT 12.3 x1000/uL (4.5-11.0)
[2024-01-03 07:40] LABS: HEPATITIS A AB IGM NEGATIVE (Negative); HEPATITIS B CORE AB IGM NEGATIVE (Negative)
[2024-01-03 07:41] LABS: HEPATITIS C AB REACTIVE (Pos) (Negative)
[2024-01-03 08:00] LABS: DIFFERENTIAL COMMENT 1
== END 2024-01-03 11:30 | DRG 871 ==
LOC: ER 16:36 → EDBEDREQ 20:15 → 7EST 22:08 → EDBEDREQTM 22:14 → EDBEDREQ 22:14 → EDBEDREQSVC 22:14
PROVIDERS: ADMIT Internal Medicine; ATTEND Internal Medicine
PROC: 05HY33Z Insertion of Infusion Device into Upper Vein, Percutaneous Approach (ICD-10-PCS; principal; 2024-01-02)
PROC: B54MZZA Ultrasonography of Right Upper Extremity Veins, Guidance (ICD-10-PCS; 2024-01-02)
DX: A41.9 Sepsis, unspecified organism (principal); E43 Unspecified severe protein-calorie malnutrition; N17.0 Acute kidney failure with tubular necrosis; G92.8 Other toxic encephalopathy; E87.0 Hyperosmolality and hypernatremia; I13.0 Hypertensive heart and chronic kidney disease with heart failure and stage 1 through stage 4 chronic kidney disease, or unspecified chronic kidney disease; Z68.1 Body mass index [BMI] 19.9 or less, adult; N39.0 Urinary tract infection, site not specified; N20.1 Calculus of ureter; N18.9 Chronic kidney disease, unspecified; K21.9 Gastro-esophageal reflux disease without esophagitis; F03.90 Unspecified dementia, unspecified severity, without behavioral disturbance, psychotic disturbance, mood disturbance, and anxiety; E86.0 Dehydration; S91.111A Laceration without foreign body of right great toe without damage to nail, initial encounter; I50.9 Heart failure, unspecified; B96.20 Unspecified Escherichia coli [E. coli] as the cause of diseases classified elsewhere; E11.65 Type 2 diabetes mellitus with hyperglycemia; Z86.73 Personal history of transient ischemic attack (TIA), and cerebral infarction without residual deficits; Z79.899 Other long term (current) drug therapy; Z99.3 Dependence on wheelchair; X58.XXXA Exposure to other specified factors, initial encounter; Y93.89 Activity, other specified; Y92.89 Other specified places as the place of occurrence of the external cause; Y99.8 Other external cause status
CPT/HCPCS: 36415; 36573; 71045; 74176; 80048; 80061; 80076; 80305; 80320; 81003; 82040; 82550; 82553; 83036; 83605; 83735; 83930; 83935; 84100; 84145; 84439; 84443; 84484; 85025; 86705; 86709; 87077; 87186; 87340; 92610; 93970; 99291; C1725; J0696; J1630; J1650; J2185; J2405; J3480; J3490; J7060; J7070; G0480

== ENCOUNTER 2024-08-22 22:34 | Inpatient (IN) | payer MEDICARE, MEDICAID ==
[~2024-08-22] VITALS: Ht 175.3 cm; Wt 72.1 kg
[~2024-08-22 22:34] MED LIST changes: +GABA-1180 PO; -GABA-532 PO; -TAMS-11 PO; +TAMS-54 PO
[2024-08-22] MEDS: SODIUM CHLORIDE 0.9% (SEPSIS BOLUS) IV ONE (23:29)
[2024-08-22] MEDS: PIPERACILLIN/TAZO 3.375G/50ML 50 ML IV ONE (23:29)
[2024-08-22 23:44] LABS: BG BASE EXCESS -7.1 mmol/L (-2.0-3.0); BG CARBOXYHEMOGLOBIN 0.8 % (0.5-1.5); BG DEOXYHEMOGLOBIN 3.6 % (0.0-5.0); BG FRACTION INSPIRED OXYGEN 36; BG HCO3 ACT 15.2 mmol/L (21.0-28.0); BG METHEMOGLOBIN 0.3 % (0.5-1.5); BG OXYGEN SATURATION 96.4 % (94.0-98.0); BG OXYHEMOGLOBIN 95.3 % (94.0-98.0); BG PCO2 23.5 mmHg (35.0-48.0); BG PH 7.428 (7.350-7.450); BG PO2 83.2 mmHg (83.0-108.0); BG SAMPLE SITE RIGHT RADIAL; BG TOTAL HEMOGLOBIN 14.2 g/dL (13.5-17.5); BG VENT MODE NASAL CANNULA
[2024-08-23] VITALS (10 sets, daily range): BP systolic 100–127; BP diastolic 56–107; PULSE 64–79; RESP 10–17; TEMP 36.1–36.4; O2SAT 96–100
[2024-08-23 00:01] LABS: INR 1.2; PROTHROMBIN TIME 12.9 sec (9.6-11.0)
[2024-08-23 00:02] LABS: BASOPHILS % 0.2 % (0.0-2.0); DIFFERENTIAL COMMENT 0; EOSINOPHILS % 0.3 % (0.0-5.0); HEMATOCRIT. 47.2 % (42.0-52.0); HEMOGLOBIN. 13.9 g/dL (14.0-18.0); LYMPHOCYTES % 20.9 % (20.0-50.0); MEAN CORPUSCULAR HEMOGLOBIN 20.9 pg (28.0-32.0); MEAN CORPUSCULAR HGB CONC 29.5 g/dL (31.0-37.0); MEAN CORPUSCULAR VOLUME 70.8 fL (80.0-94.0); MEAN PLATELET VOLUME 9.6 fl (7.4-10.4); MONOCYTES % 10.1 % (2.0-8.0); NEUTROPHILS % 68.5 % (40.0-76.0); PLATELET 246 x1000/uL (130-400); RED BLOOD CELL COUNT 6.67 mill/uL (4.7-6.1); WHITE BLOOD COUNT 18.2 x1000/uL (4.5-11.0)
[2024-08-23] MEDS: VANCOMYCIN 1G PREMIX 200 ML IV ONE (00:03)
[2024-08-23 00:11] LABS: CHLORIDE 143 mEq/L (98-107); POTASSIUM 4.3 mEq/L (3.5-5.1)
[2024-08-23 00:13] LABS: CALCIUM 9.4 mg/dL (8.7-10.4); CARBON DIOXIDE 19 mEq/L (21-32)
[2024-08-23 00:18] LABS: GLUCOSE 126 mg/dL (70-105)
[2024-08-23 00:20] LABS: ALANINE AMINOTRANSFERASE 27 IU/L (10-49); ALBUMIN 4.1 g/dL (3.2-4.8); ASPARTATE AMINOTRANSFERASE 25 IU/L (<34); BILIRUBIN DIRECT < 0.1 mg/dL (<=3.0); BILIRUBIN TOTAL 0.3 mg/dL (0.1-1.0); PROTEIN TOTAL 9.1 g/dL (6.0-8.3); TROPONIN I HIGH SENSITIVITY 42 ng/L (3.0-53)
[2024-08-23 00:46] LABS: SODIUM 177 mEq/L (136-145); UREA NITROGEN BLOOD 104 mg/dL (9-23)
[2024-08-23 00:47] LABS: CREATININE 4.1 mg/dL (0.6-1.3)
[2024-08-23 00:50] LABS: LACTIC ACID 2.7 mmol/L (0.4-2.0)
[2024-08-23] MEDS ORDERED: IPRATROPIUM/ALBUTEROL 0.5-3(2.5)MG/3ML NEB HHN PRN (04:45)
[2024-08-23] MEDS ORDERED: GUAIFENESIN 200MG/10ML SUGAR FREE UDC PO PRN (04:45)
[2024-08-23] MEDS ORDERED: ENOXAPARIN 40MG/0.4ML SYR SUBCUT SCH (04:45)
[2024-08-23] MEDS ORDERED: ASPIRIN 81MG TABLET PO NR (04:45)
[2024-08-23] MEDS ORDERED: DOCUSATE SODIUM 100MG CAPSULE PO PRN (04:45)
[2024-08-23] MEDS ORDERED: ONDANSETRON HCL 4MG/2ML INJ IV PRN (04:45)
[2024-08-23] MEDS ORDERED: BUSP5TAB3 PO (04:50)
[2024-08-23] MEDS ORDERED: HYDRALAZINE 20MG/ML VIAL IV PRN (05:15)
[2024-08-23] MEDS: ENOXAPARIN 30MG/0.3ML SYR SUBCUT SCH (05:35)
[2024-08-23] MEDS: DEXTROSE 5% WATER 1,000 ML IV SCH (05:36)
[2024-08-23 09:18] LABS: BASOPHILS % 0.3 % (0.0-2.0); DIFFERENTIAL COMMENT 0; EOSINOPHILS % 1.3 % (0.0-5.0); HEMATOCRIT. 44.1 % (42.0-52.0); HEMOGLOBIN. 12.3 g/dL (14.0-18.0); LYMPHOCYTES % 26.4 % (20.0-50.0); MEAN CORPUSCULAR HEMOGLOBIN 20.6 pg (28.0-32.0); MEAN CORPUSCULAR HGB CONC 27.9 g/dL (31.0-37.0); MEAN PLATELET VOLUME 9.9 fl (7.4-10.4); MONOCYTES % 9.7 % (2.0-8.0); NEUTROPHILS % 62.3 % (40.0-76.0); PLATELET 180 x1000/uL (130-400); RED BLOOD CELL COUNT 5.96 mill/uL (4.7-6.1); RED CELL DISTRIBUTION WIDTH 21.7 % (11.6-14.6); WHITE BLOOD COUNT 15.1 x1000/uL (4.5-11.0)
[2024-08-23 09:26] LABS: CHLORIDE 144 mEq/L (98-107)
[2024-08-23 09:32] LABS: GLUCOSE 157 mg/dL (70-105); TRIGLYCERIDE 108 mg/dL (0-150)
[2024-08-23 09:51] LABS: CALCIUM 8.1 mg/dL (8.7-10.4)
[2024-08-23 09:56] LABS: CREATININE 3.9 mg/dL (0.6-1.3)
[2024-08-23] MEDS: PIPERACILLIN/TAZO 3.375G/50ML 50 ML IV SCH (10:04)
[2024-08-23 10:16] LABS: CARBON DIOXIDE 14 mEq/L (21-32); CHOLESTEROL 142 mg/dL (<200); HDL CHOLESTEROL 31 mg/dL (>55); LDL CHOLESTEROL 85 mg/dL (5-100); T4 FREE 1.07 ng/dL (0.89-1.76)
[2024-08-23] MEDS: PANTOPRAZOLE SODIUM 40 MG/VIAL IV SCH (10:23)
[2024-08-23 10:24] LABS: SODIUM 172 mEq/L (136-145)
[2024-08-23 10:27] LABS: POTASSIUM 6.7 mEq/L (3.5-5.1); UREA NITROGEN BLOOD 107 mg/dL (9-23)
[2024-08-23 10:28] LABS: IRON 49 ug/dL (65-175); TOTAL IRON BINDING CAPACITY 209 ug/dl (250-425)
[2024-08-23] MEDS: INSULIN REGULAR (HUMULIN R) 1000UNITS/10ML VIAL IV SCH (11:00)
[2024-08-23] MEDS: DEXTROSE 50% WATER 50ML SYRINGE IV SCH (11:00)
[2024-08-23] MEDS: SODIUM ZIRCONIUM CYCLOSILICATE 10GM/PACKET PO SCH (11:00)
[2024-08-23] MEDS ORDERED: ALBUTEROL (0.083%) 2.5MG/3ML NEB HHN SCH (11:00)
[2024-08-23] MEDS ORDERED: SODIUM BICARBONATE 8.4% 50MEQ/50ML SYR IV SCH ×2 (11:00→11:15)
[2024-08-23] MEDS: SODIUM CHLORIDE 0.45% 1,000 ML IV ONE (11:24)
[2024-08-23] MEDS: BLOOD SUGAR DIAGNOSTIC STRIP TEST SCH (12:00)
[2024-08-23] MEDS: CALCIUM GLUCONATE 100MG/ML 10ML VIAL IV NR (12:00)
[2024-08-23 12:02] LABS: CREATINE KINASE 846 IU/L (46-171); PHOSPHORUS 3.5 mg/dL (2.5-4.9)
[2024-08-23 12:20] LABS: LACTIC ACID 2.6 mmol/L (0.4-2.0)
[2024-08-23] MEDS: SODIUM BICARBONATE 8.4% 50MEQ/50ML SYR IV SCH (13:18)
[2024-08-23 13:22] LABS: CLARITY URINE TURBID (CLEAR); COLOR URINE YELLOW (YELLOW); GLUCOSE URINE NEGATIVE (NEGATIVE); KETONES URINE NEGATIVE (NEGATIVE); LEUKOCYTE ESTERASE URINE 3+ (NEGATIVE); NITRITE URINE POSITIVE (NEGATIVE); OCCULT BLOOD URINE 3+ (NEGATIVE); PH URINE 8.5 (4.5-8.0); PROTEIN URINE 3+ (NEGATIVE); SPECIFIC GRAVITY URINE 1.019 (1.005-1.030); UROBILINOGEN URINE 0.2 E.U./dL (0.2-1.0)
[2024-08-23 13:29] LABS: BACTERIA URINE 3+; RBC URINE 50-100 /hpf (0-2); SQUAMOUS EPITHELIAL CELL URINE 1+ /lpf (RARE/1+); WBC URINE TNTC /hpf (0-2); YEAST URINE NONE SEEN
[2024-08-23] MEDS: SODIUM BICARBONATE 100 MEQ in DEXTROSE 5% WATER 900 ML IV SCH (14:54)
[2024-08-23] MEDS: ATORVASTATIN CALCIUM 20MG TABLET PO SCH (20:35)
[2024-08-23 20:38] LABS: POTASSIUM 3.3 mEq/L (3.5-5.1)
[2024-08-23 20:44] LABS: CREATININE 3.3 mg/dL (0.6-1.3)
[2024-08-23] MEDS: IPRATROPIUM/ALBUTEROL 0.5-3(2.5)MG/3ML NEB HHN SCH (21:38)
[2024-08-24] VITALS (16 sets, daily range): BP systolic 91–117; BP diastolic 50–78; PULSE 57–90; RESP 11–26; TEMP 36.2–36.4; O2SAT 96–100
[2024-08-24 00:42] LABS: POTASSIUM 3.1 mEq/L (3.5-5.1)
[2024-08-24 00:43] LABS: CALCIUM 8.1 mg/dL (8.7-10.4)
[2024-08-24 00:48] LABS: CREATININE 3.3 mg/dL (0.6-1.3)
[2024-08-24 00:58] LABS: LACTIC ACID 3.4 mmol/L (0.4-2.0)
[2024-08-24 06:45] LABS: CALCIUM 7.9 mg/dL (8.7-10.4); POTASSIUM 2.9 mEq/L (3.5-5.1)
[2024-08-24 06:50] LABS: BASOPHILS % 0.2 % (0.0-2.0); DIFFERENTIAL COMMENT 0; EOSINOPHILS % 4.5 % (0.0-5.0); HEMATOCRIT. 37.7 % (42.0-52.0); HEMOGLOBIN. 11.1 g/dL (14.0-18.0); LYMPHOCYTES % 17.7 % (20.0-50.0); MEAN CORPUSCULAR HEMOGLOBIN 20.9 pg (28.0-32.0); MEAN CORPUSCULAR HGB CONC 29.5 g/dL (31.0-37.0); MEAN PLATELET VOLUME 10.3 fl (7.4-10.4); MONOCYTES % 8.3 % (2.0-8.0); NEUTROPHILS % 69.3 % (40.0-76.0); PLATELET 176 x1000/uL (130-400); RED CELL DISTRIBUTION WIDTH 20.6 % (11.6-14.6); WHITE BLOOD COUNT 14.6 x1000/uL (4.5-11.0)
[2024-08-24] MEDS: ENOXAPARIN 30MG/0.3ML SYR SUBCUT SCH (10:35)
[2024-08-24] MEDS: VANCOMYCIN 1G PREMIX 200 ML IV SCH (10:36)
[2024-08-24] MEDS: DEXTROSE 5% WATER 1,000 ML IV SCH (11:29)
[2024-08-24] MEDS ORDERED: MEROPENEM 1,000 MG in SODIUM CHLORIDE 0.9% 100 ML IV SCH (13:00)
[2024-08-24] MEDS: KCL 10MEQ/50ML PREMIX 50 ML IV SCH (13:32)
[2024-08-24] MEDS: MEROPENEM 500MG/50ML 50 ML IV SCH ×2 (15:02→21:43)
[2024-08-24] MEDS: POTASSIUM CHLORIDE 20MEQ TABLET SR PO NR (16:38)
[2024-08-24 18:40] LABS: POTASSIUM 3.1 mEq/L (3.5-5.1)
[2024-08-24 18:42] LABS: CALCIUM 7.7 mg/dL (8.7-10.4)
[2024-08-24 18:46] LABS: CREATININE 2.5 mg/dL (0.6-1.3)
[2024-08-24] MEDS: ACETAMINOPHEN 325MG TABLET PO PRN (20:17)
[2024-08-24 20:35] LABS: CALCIUM 7.6 mg/dL (8.7-10.4)
[2024-08-24 20:39] LABS: CREATININE 2.4 mg/dL (0.6-1.3)
[2024-08-25] VITALS (16 sets, daily range): BP systolic 92–124; BP diastolic 58–74; PULSE 76–110; RESP 13–25; TEMP 35.8–37.4; O2SAT 96–100
[2024-08-25 00:55] LABS: POTASSIUM 3.1 mEq/L (3.5-5.1)
[2024-08-25 00:56] LABS: CALCIUM 7.4 mg/dL (8.7-10.4)
[2024-08-25 01:01] LABS: CREATININE 2.4 mg/dL (0.6-1.3)
[2024-08-25 06:25] LABS: CALCIUM 7.6 mg/dL (8.7-10.4)
[2024-08-25 06:29] LABS: CREATININE 2.3 mg/dL (0.6-1.3)
[2024-08-25 06:34] LABS: BASOPHILS % 0.1 % (0.0-2.0); EOSINOPHILS % 4.1 % (0.0-5.0); HEMATOCRIT. 33.3 % (42.0-52.0); HEMOGLOBIN. 9.9 g/dL (14.0-18.0); LYMPHOCYTES % 21.1 % (20.0-50.0); MEAN CORPUSCULAR HEMOGLOBIN 20.9 pg (28.0-32.0); MEAN CORPUSCULAR HGB CONC 29.9 g/dL (31.0-37.0); MEAN CORPUSCULAR VOLUME 69.9 fL (80.0-94.0); MEAN PLATELET VOLUME 10.4 fl (7.4-10.4); MONOCYTES % 13.1 % (2.0-8.0); NEUTROPHILS % 61.6 % (40.0-76.0); PLATELET 162 x1000/uL (130-400); RED BLOOD CELL COUNT 4.76 mill/uL (4.7-6.1); RED CELL DISTRIBUTION WIDTH 20.1 % (11.6-14.6); WHITE BLOOD COUNT 14.5 x1000/uL (4.5-11.0)
[2024-08-25 07:19] LABS: DIFFERENTIAL COMMENT 1
[2024-08-25 07:20] LABS: ADD RBC MORPHOLOGY YES
[2024-08-25 07:58] LABS: POTASSIUM 2.8 mEq/L (3.5-5.1)
[2024-08-25] MEDS: ENOXAPARIN 60MG/0.6ML SYR SUBCUT SCH (09:47)
[2024-08-25] MEDS: POTASSIUM CHLORIDE 20MEQ TABLET SR PO SCH ×2 (09:48→13:35)
[2024-08-25] MEDS: KCL 20MEQ/100ML PREMIX 100 ML IV SCH (10:54)
[2024-08-25 13:00] LABS: CALCIUM 7.6 mg/dL (8.7-10.4)
[2024-08-25 13:03] LABS: POTASSIUM 2.7 mEq/L (3.5-5.1)
[2024-08-25 13:04] LABS: CREATININE 2.2 mg/dL (0.6-1.3)
[2024-08-25 16:57] LABS: MICROCYTOSIS 2+; OVALOCYTES 2+; PLATELET ESTIMATE NORMAL; TARGET CELLS 1+
[2024-08-25 16:58] LABS: HYPOCHROMASIA 1+
[2024-08-25 16:59] LABS: GIANT PLATELETS FEW
[2024-08-25 18:31] LABS: POTASSIUM 3.4 mEq/L (3.5-5.1)
[2024-08-25 18:32] LABS: CALCIUM 7.6 mg/dL (8.7-10.4)
[2024-08-25] MEDS: CEFAZOLIN 1000MG PREMIX 50ML IV SCH (21:06)
[2024-08-25] MEDS ORDERED: CEFAZOLIN SODIUM 1000MG/VIAL IV SCH (22:00)
[2024-08-25] MEDS: ACETAMINOPHEN 325MG TABLET PO PRN (23:59)
[2024-08-26] VITALS (16 sets, daily range): BP systolic 92–128; BP diastolic 51–77; PULSE 79–100; RESP 16–23; TEMP 36.8–38; O2SAT 97–99
[2024-08-26 05:46] LABS: BASOPHILS % 0.2 % (0.0-2.0); DIFFERENTIAL COMMENT 0; EOSINOPHILS % 1.3 % (0.0-5.0); HEMATOCRIT. 32.8 % (42.0-52.0); HEMOGLOBIN. 9.7 g/dL (14.0-18.0); LYMPHOCYTES % 15.2 % (20.0-50.0); MEAN CORPUSCULAR HEMOGLOBIN 20.8 pg (28.0-32.0); MEAN CORPUSCULAR HGB CONC 29.6 g/dL (31.0-37.0); MEAN CORPUSCULAR VOLUME 70.2 fL (80.0-94.0); MONOCYTES % 13.5 % (2.0-8.0); NEUTROPHILS % 69.8 % (40.0-76.0); PLATELET 148 x1000/uL (130-400); RED BLOOD CELL COUNT 4.67 mill/uL (4.7-6.1); RED CELL DISTRIBUTION WIDTH 20.1 % (11.6-14.6); WHITE BLOOD COUNT 21.5 x1000/uL (4.5-11.0)
[2024-08-26 06:19] LABS: CHLORIDE 119 mEq/L (98-107); POTASSIUM 3.4 mEq/L (3.5-5.1); SODIUM 155 mEq/L (136-145)
[2024-08-26 06:20] LABS: CARBON DIOXIDE 25 mEq/L (21-32)
[2024-08-26 06:21] LABS: CALCIUM 7.8 mg/dL (8.7-10.4)
[2024-08-26 06:25] LABS: GLUCOSE 136 mg/dL (70-105)
[2024-08-26 06:26] LABS: UREA NITROGEN BLOOD 31 mg/dL (9-23)
[2024-08-26 06:28] LABS: PHOSPHORUS 2.5 mg/dL (2.5-4.9)
[2024-08-26] MEDS: POTASSIUM CHLORIDE 20MEQ TABLET SR PO SCH (09:49)
[2024-08-26] MEDS: FAMOTIDINE 20MG/2ML VIAL IV SCH (09:54)
[2024-08-27] VITALS (41 sets, daily range): BP systolic 98–130; BP diastolic 49–87; PULSE 75–115; RESP 18–30; TEMP 36.4–39.1; O2SAT 93–100
[2024-08-27 06:46] LABS: BASOPHILS % 0.3 % (0.0-2.0); DIFFERENTIAL COMMENT 0; EOSINOPHILS % 1.6 % (0.0-5.0); HEMATOCRIT. 32.5 % (42.0-52.0); HEMOGLOBIN. 9.6 g/dL (14.0-18.0); LYMPHOCYTES % 12.8 % (20.0-50.0); MEAN CORPUSCULAR HEMOGLOBIN 20.8 pg (28.0-32.0); MEAN CORPUSCULAR HGB CONC 29.5 g/dL (31.0-37.0); MEAN CORPUSCULAR VOLUME 70.5 fL (80.0-94.0); MEAN PLATELET VOLUME 9.7 fl (7.4-10.4); NEUTROPHILS % 75.3 % (40.0-76.0); PLATELET 121 x1000/uL (130-400); RED BLOOD CELL COUNT 4.62 mill/uL (4.7-6.1); RED CELL DISTRIBUTION WIDTH 20.1 % (11.6-14.6)
[2024-08-27 07:12] LABS: POTASSIUM 3.4 mEq/L (3.5-5.1)
[2024-08-27 07:18] LABS: CREATININE 1.9 mg/dL (0.6-1.3)
[2024-08-27] MEDS: POTASSIUM CHLORIDE 20MEQ TABLET SR PO NR (08:08)
[2024-08-28] VITALS (14 sets, daily range): BP systolic 100–117; BP diastolic 46–83; PULSE 81–99; RESP 13–25; TEMP 36.8–38.9; O2SAT 93–100
[2024-08-28] MEDS: ASPIRIN 81MG TABLET PO NR (00:24)
[2024-08-28] MEDS: ATORVASTATIN CALCIUM 40MG TABLET PO SCH (00:36)
[2024-08-28 06:46] LABS: POTASSIUM 3.3 mEq/L (3.5-5.1)
[2024-08-28 06:47] LABS: CALCIUM 8.3 mg/dL (8.7-10.4)
[2024-08-28 06:51] LABS: CREATININE 1.7 mg/dL (0.6-1.3)
[2024-08-28 07:05] LABS: BASOPHILS % 0.3 % (0.0-2.0); EOSINOPHILS % 1.7 % (0.0-5.0); HEMATOCRIT. 34.2 % (42.0-52.0); HEMOGLOBIN. 10.4 g/dL (14.0-18.0); LYMPHOCYTES % 9.6 % (20.0-50.0); MEAN CORPUSCULAR HEMOGLOBIN 21.1 pg (28.0-32.0); MEAN CORPUSCULAR HGB CONC 30.3 g/dL (31.0-37.0); MEAN CORPUSCULAR VOLUME 69.6 fL (80.0-94.0); MONOCYTES % 9.6 % (2.0-8.0); NEUTROPHILS % 78.8 % (40.0-76.0); RED BLOOD CELL COUNT 4.91 mill/uL (4.7-6.1); RED CELL DISTRIBUTION WIDTH 20.1 % (11.6-14.6); WHITE BLOOD COUNT 23.9 x1000/uL (4.5-11.0)
[2024-08-28 07:08] LABS: DIFFERENTIAL COMMENT 1
[2024-08-28 08:10] LABS: PLATELET 125 x1000/uL (130-400)
[2024-08-28] MEDS: ENOXAPARIN 80MG/0.8ML SYR SUBCUT SCH (09:00)
[2024-08-28] MEDS: ASPIRIN 81MG TABLET PO SCH (12:16)
[2024-08-28] MEDS: POTASSIUM CHLORIDE 20MEQ/PACKET NG SCH (12:16)
[2024-08-28] MEDS: PIPERACILLIN/TAZO 3.375G/50ML 50 ML IV SCH (12:18)
[2024-08-28] MEDS ORDERED: IOHEXOL-350 100 ML BOTTLE ONE (12:36)
[2024-08-28] MEDS: DEXT 5%/0.45% NACL 1000ML 1,000 ML IV SCH (15:30)
[2024-08-28] MEDS: ENOXAPARIN 60MG/0.6ML SYR SUBCUT SCH (21:28)
[2024-08-29] VITALS (10 sets, daily range): BP systolic 93–113; BP diastolic 46–69; PULSE 76–103; RESP 16–28; TEMP 36.7–37.1; O2SAT 96–99
[2024-08-29 07:27] LABS: BASOPHILS % 0.2 % (0.0-2.0); EOSINOPHILS % 1.3 % (0.0-5.0); HEMATOCRIT. 30.7 % (42.0-52.0); HEMOGLOBIN. 9.3 g/dL (14.0-18.0); LYMPHOCYTES % 8.9 % (20.0-50.0); MEAN CORPUSCULAR HGB CONC 30.3 g/dL (31.0-37.0); MEAN CORPUSCULAR VOLUME 69.2 fL (80.0-94.0); MEAN PLATELET VOLUME 10.8 fl (7.4-10.4); MONOCYTES % 7.9 % (2.0-8.0); NEUTROPHILS % 81.7 % (40.0-76.0); PLATELET 162 x1000/uL (130-400); RED BLOOD CELL COUNT 4.44 mill/uL (4.7-6.1); RED CELL DISTRIBUTION WIDTH 19.7 % (11.6-14.6); WHITE BLOOD COUNT 24.4 x1000/uL (4.5-11.0)
[2024-08-29 07:28] LABS: POTASSIUM 3.7 mEq/L (3.5-5.1)
[2024-08-29 07:34] LABS: CREATININE 1.8 mg/dL (0.6-1.3)
[2024-08-29 07:39] LABS: DIFFERENTIAL COMMENT 1
[2024-08-30] VITALS (13 sets, daily range): BP systolic 102–140; BP diastolic 48–77; PULSE 76–102; RESP 20–30; TEMP 36.8–39.1; O2SAT 95–99
[2024-08-30 07:03] LABS: BASOPHILS % 0.3 % (0.0-2.0); EOSINOPHILS % 1.6 % (0.0-5.0); HEMATOCRIT. 29.9 % (42.0-52.0); LYMPHOCYTES % 9.7 % (20.0-50.0); MEAN CORPUSCULAR HEMOGLOBIN 20.6 pg (28.0-32.0); MEAN CORPUSCULAR HGB CONC 30.1 g/dL (31.0-37.0); MEAN CORPUSCULAR VOLUME 68.6 fL (80.0-94.0); MEAN PLATELET VOLUME 11.4 fl (7.4-10.4); MONOCYTES % 5.3 % (2.0-8.0); NEUTROPHILS % 83.1 % (40.0-76.0); PLATELET 240 x1000/uL (130-400); RED BLOOD CELL COUNT 4.36 mill/uL (4.7-6.1); RED CELL DISTRIBUTION WIDTH 20.2 % (11.6-14.6); WHITE BLOOD COUNT 21.3 x1000/uL (4.5-11.0)
[2024-08-30 07:09] LABS: DIFFERENTIAL COMMENT 1
[2024-08-30 07:12] LABS: CARBON DIOXIDE 23 mEq/L (21-32); CHLORIDE 111 mEq/L (98-107); POTASSIUM 3.3 mEq/L (3.5-5.1); SODIUM 145 mEq/L (136-145)
[2024-08-30 07:13] LABS: CALCIUM 8.1 mg/dL (8.7-10.4)
[2024-08-30 07:18] LABS: CREATININE 1.8 mg/dL (0.6-1.3); GLUCOSE 136 mg/dL (70-105); UREA NITROGEN BLOOD 24 mg/dL (9-23)
[2024-08-30 07:20] LABS: PHOSPHORUS 2.3 mg/dL (2.5-4.9)
[2024-08-30] MEDS: POTASSIUM CHLORIDE 20MEQ TABLET SR PO SCH (08:32)
[2024-08-30] MEDS: POTASSIUM PHOSPHATE 20 MMOL in DEXT 5% WATER 243.3333 ML IV SCH (12:58)
[2024-08-31] VITALS (8 sets, daily range): BP systolic 98–132; BP diastolic 54–82; PULSE 66–104; RESP 17–19; TEMP 36.1–38.4; O2SAT 96–100
[2024-08-31 06:30] LABS: BASOPHILS % 0.2 % (0.0-2.0); EOSINOPHILS % 1.2 % (0.0-5.0); HEMATOCRIT. 29.3 % (42.0-52.0); HEMOGLOBIN. 9.2 g/dL (14.0-18.0); LYMPHOCYTES % 14.7 % (20.0-50.0); MEAN CORPUSCULAR HEMOGLOBIN 21.3 pg (28.0-32.0); MEAN CORPUSCULAR HGB CONC 31.4 g/dL (31.0-37.0); MEAN CORPUSCULAR VOLUME 67.7 fL (80.0-94.0); MEAN PLATELET VOLUME 9.6 fl (7.4-10.4); MONOCYTES % 7.8 % (2.0-8.0); NEUTROPHILS % 76.1 % (40.0-76.0); PLATELET 257 x1000/uL (130-400); RED BLOOD CELL COUNT 4.33 mill/uL (4.7-6.1); RED CELL DISTRIBUTION WIDTH 19.7 % (11.6-14.6); WHITE BLOOD COUNT 21.2 x1000/uL (4.5-11.0)
[2024-08-31 06:39] LABS: CARBON DIOXIDE 24 mEq/L (21-32); CHLORIDE 111 mEq/L (98-107); POTASSIUM 3.2 mEq/L (3.5-5.1); SODIUM 146 mEq/L (136-145)
[2024-08-31 06:41] LABS: CALCIUM 8.4 mg/dL (8.7-10.4)
[2024-08-31 06:45] LABS: CREATININE 1.8 mg/dL (0.6-1.3); GLUCOSE 122 mg/dL (70-105); UREA NITROGEN BLOOD 24 mg/dL (9-23)
[2024-08-31 06:48] LABS: PHOSPHORUS 2.8 mg/dL (2.5-4.9)
[2024-08-31 07:26] LABS: DIFFERENTIAL COMMENT 1
[2024-08-31] MEDS: KCL 20MEQ/100ML PREMIX 100 ML IV SCH (10:24)
[2024-09-01] VITALS (8 sets, daily range): BP systolic 90–119; BP diastolic 39–73; PULSE 59–102; RESP 16–20; TEMP 36.4–38.2; O2SAT 98–99
[2024-09-01] MEDS: MIDODRINE HCL 5MG TABLET PO PRN (00:14)
[2024-09-01 07:05] LABS: BASOPHILS % 0.2 % (0.0-2.0); EOSINOPHILS % 1.5 % (0.0-5.0); HEMATOCRIT. 29.3 % (42.0-52.0); LYMPHOCYTES % 14.7 % (20.0-50.0); MEAN CORPUSCULAR HGB CONC 30.8 g/dL (31.0-37.0); MEAN CORPUSCULAR VOLUME 68.1 fL (80.0-94.0); MEAN PLATELET VOLUME 9.5 fl (7.4-10.4); NEUTROPHILS % 74.6 % (40.0-76.0); PLATELET 302 x1000/uL (130-400); RED BLOOD CELL COUNT 4.31 mill/uL (4.7-6.1); RED CELL DISTRIBUTION WIDTH 19.3 % (11.6-14.6); WHITE BLOOD COUNT 22.4 x1000/uL (4.5-11.0)
[2024-09-01 07:21] LABS: DIFFERENTIAL COMMENT 1
[2024-09-01 07:23] LABS: ADD RBC MORPHOLOGY YES
[2024-09-01 07:30] LABS: POTASSIUM 3.4 mEq/L (3.5-5.1)
[2024-09-01 07:32] LABS: CALCIUM 8.8 mg/dL (8.7-10.4)
[2024-09-01 07:35] LABS: VITAMIN B12 SERUM 892 pg/mL (211-911)
[2024-09-01 07:37] LABS: FOLIC ACID (FOLATE) SERUM 14.09 ng/mL (>5.38)
[2024-09-01] MEDS ORDERED: KCL 20MEQ/100ML PREMIX 100 ML IV SCH (08:45)
[2024-09-01] MEDS: POLYETHYLENE GLYCOL 3350 (17GM) 1 DOSE PACK NG SCH (09:20)
[2024-09-01] MEDS: SODIUM CHLORIDE 0.9% 1,000 ML IV ONE (09:26)
[2024-09-01] MEDS: SODIUM CHLORIDE 0.45% 1,000 ML IV SCH (11:16)
[2024-09-01] MEDS: KCL 20MEQ/100ML PREMIX 100 ML IV SCH (11:17)
[2024-09-01 17:43] LABS: ANISOCYTOSIS 1+; HYPOCHROMASIA 2+; MICROCYTOSIS 3+; PLATELET ESTIMATE NORMAL
[2024-09-02] VITALS: BP 116/63; PULSE 104; RESP 17; TEMP 36.8; O2SAT 99
[2024-09-02 04:00] VITALS: BP 112/60; PULSE 96; RESP 17; TEMP 36.4; O2SAT 98
[2024-09-02 07:15] LABS: BASOPHILS % 0.2 % (0.0-2.0); EOSINOPHILS % 0.5 % (0.0-5.0); HEMOGLOBIN. 8.5 g/dL (14.0-18.0); LYMPHOCYTES % 14.5 % (20.0-50.0); MEAN CORPUSCULAR HEMOGLOBIN 20.7 pg (28.0-32.0); MEAN CORPUSCULAR HGB CONC 30.5 g/dL (31.0-37.0); MEAN CORPUSCULAR VOLUME 67.8 fL (80.0-94.0); MEAN PLATELET VOLUME 9.2 fl (7.4-10.4); MONOCYTES % 7.5 % (2.0-8.0); NEUTROPHILS % 77.3 % (40.0-76.0); PLATELET 399 x1000/uL (130-400); RED BLOOD CELL COUNT 4.13 mill/uL (4.7-6.1); RED CELL DISTRIBUTION WIDTH 19.4 % (11.6-14.6); WHITE BLOOD COUNT 22.2 x1000/uL (4.5-11.0)
[2024-09-02 07:21] LABS: DIFFERENTIAL COMMENT 1
[2024-09-02 07:25] LABS: POTASSIUM 3.5 mEq/L (3.5-5.1)
[2024-09-02 07:26] LABS: CALCIUM 8.1 mg/dL (8.7-10.4)
[2024-09-02 07:31] LABS: CREATININE 1.9 mg/dL (0.6-1.3)
[2024-09-02 08:00] VITALS: BP 108/57; PULSE 95; RESP 15; TEMP 37.1; O2SAT 96
[2024-09-02 12:00] VITALS: BP 107/61; PULSE 91; RESP 16; TEMP 36.4; O2SAT 97
[2024-09-02 16:00] VITALS: BP 120/58; PULSE 96; RESP 15; RESP 16; TEMP 36.9; TEMP 39; O2SAT 96
[2024-09-02] MEDS: INSULIN LISPRO 100 UNITS/ML SUBCUT SCH (17:50)
[2024-09-02 20:00] VITALS: BP 138/88; PULSE 83; RESP 20; TEMP 36.7; O2SAT 99
[2024-09-02] MEDS: DEXTROSE 5% WATER 1,000 ML IV SCH (22:00)
[2024-09-03] VITALS: BP_SYST 108; BP_DIAS 39; BP_DIAS 89; PULSE 89; RESP 19; TEMP 37; O2SAT 100
[2024-09-03] MEDS: LINEZOLID 600 MG PREMIX 300 ML IV SCH (03:19)
[2024-09-03 04:00] VITALS: BP 99/54; PULSE 87; RESP 19; TEMP 37.2; O2SAT 97
[2024-09-03 08:00] VITALS: BP 116/63; PULSE 87; RESP 16; TEMP 36.8; O2SAT 87
[2024-09-03 08:24] LABS: INR 1.1; PROTHROMBIN TIME 11.7 sec (9.6-11.0)
[2024-09-03 08:27] LABS: BASOPHILS % 0.3 % (0.0-2.0); EOSINOPHILS % 1.6 % (0.0-5.0); HEMATOCRIT. 26.8 % (42.0-52.0); HEMOGLOBIN. 8.3 g/dL (14.0-18.0); LYMPHOCYTES % 14.2 % (20.0-50.0); MEAN CORPUSCULAR HEMOGLOBIN 21.1 pg (28.0-32.0); MEAN CORPUSCULAR HGB CONC 31.2 g/dL (31.0-37.0); MEAN CORPUSCULAR VOLUME 67.8 fL (80.0-94.0); MEAN PLATELET VOLUME 8.7 fl (7.4-10.4); MONOCYTES % 6.4 % (2.0-8.0); NEUTROPHILS % 77.5 % (40.0-76.0); PLATELET 468 x1000/uL (130-400); RED BLOOD CELL COUNT 3.94 mill/uL (4.7-6.1); RED CELL DISTRIBUTION WIDTH 18.7 % (11.6-14.6)
[2024-09-03 08:28] LABS: ADD RBC MORPHOLOGY NO; DIFFERENTIAL COMMENT 1
[2024-09-03 09:34] LABS: CHLORIDE 111 mEq/L (98-107); POTASSIUM 3.4 mEq/L (3.5-5.1); SODIUM 146 mEq/L (136-145)
[2024-09-03 09:35] LABS: CALCIUM 8.4 mg/dL (8.7-10.4); CARBON DIOXIDE 26 mEq/L (21-32)
[2024-09-03 09:40] LABS: CREATININE 1.9 mg/dL (0.6-1.3); GLUCOSE 118 mg/dL (70-105); UREA NITROGEN BLOOD 27 mg/dL (9-23)
[2024-09-03 12:00] VITALS: BP 116/60; PULSE 90; RESP 18; TEMP 36.9; O2SAT 98
[2024-09-03] MEDS: POTASSIUM CHLORIDE 20MEQ/PACKET NG SCH (13:00)
[2024-09-03] MEDS ORDERED: LIDOCAINE HCL 1% 20ML VIAL ONE (13:43)
[2024-09-03] MEDS ORDERED: PROPOFOL 200MG/20ML VIAL IV ONE (13:44)
[2024-09-03 16:00] VITALS: BP 117/68; PULSE 91; RESP 15; TEMP 36.1; O2SAT 95
[2024-09-03 20:00] VITALS: BP 99/57; PULSE 84; RESP 20; TEMP 37.1; O2SAT 98
[2024-09-04] VITALS: BP 136/61; PULSE 103; RESP 18; TEMP 37; O2SAT 98
[2024-09-04 04:00] VITALS: BP 110/55; PULSE 94; RESP 17; TEMP 37.8; O2SAT 95
[2024-09-04 07:13] LABS: CHLORIDE 110 mEq/L (98-107); POTASSIUM 3.5 mEq/L (3.5-5.1); SODIUM 144 mEq/L (136-145)
[2024-09-04 07:15] LABS: CARBON DIOXIDE 25 mEq/L (21-32)
[2024-09-04 07:16] LABS: CALCIUM 8.3 mg/dL (8.7-10.4)
[2024-09-04 07:21] LABS: CREATININE 1.9 mg/dL (0.6-1.3); GLUCOSE 138 mg/dL (70-105); UREA NITROGEN BLOOD 27 mg/dL (9-23)
[2024-09-04 07:23] LABS: ALANINE AMINOTRANSFERASE 64 IU/L (10-49); ALBUMIN 3.2 g/dL (3.2-4.8); ASPARTATE AMINOTRANSFERASE 128 IU/L (<34); BASOPHILS % 0.3 % (0.0-2.0); BILIRUBIN TOTAL 0.5 mg/dL (0.1-1.0); HEMATOCRIT. 26.1 % (42.0-52.0); LYMPHOCYTES % 13.1 % (20.0-50.0); MEAN CORPUSCULAR HEMOGLOBIN 20.7 pg (28.0-32.0); MEAN CORPUSCULAR HGB CONC 30.6 g/dL (31.0-37.0); MEAN CORPUSCULAR VOLUME 67.7 fL (80.0-94.0); MEAN PLATELET VOLUME 8.7 fl (7.4-10.4); MONOCYTES % 6.1 % (2.0-8.0); NEUTROPHILS % 79.5 % (40.0-76.0); PHOSPHORUS 2.3 mg/dL (2.5-4.9); PLATELET 597 x1000/uL (130-400); PROTEIN TOTAL 7.3 g/dL (6.0-8.3); RED BLOOD CELL COUNT 3.85 mill/uL (4.7-6.1); RED CELL DISTRIBUTION WIDTH 18.9 % (11.6-14.6); WHITE BLOOD COUNT 21.8 x1000/uL (4.5-11.0)
[2024-09-04 07:24] LABS: DIFFERENTIAL COMMENT 1
[2024-09-04 07:26] LABS: ADD RBC MORPHOLOGY NO
[2024-09-04 08:00] VITALS: BP 131/57; PULSE 18; RESP 18; TEMP 36.4; O2SAT 98
[2024-09-04] MEDS: POTASSIUM CHLORIDE 20MEQ/PACKET PO SCH (09:15)
[2024-09-04] MEDS: POTASSIUM PHOSPHATE 15 MMOL in DEXT 5% WATER 245 ML IV ONE (11:34)
[2024-09-04 12:00] VITALS: BP 103/52; PULSE 18; RESP 18; TEMP 36.4; O2SAT 95
[2024-09-04 16:00] VITALS: BP 107/55; PULSE 18; RESP 18; TEMP 36.2; O2SAT 96
[2024-09-04 16:34] LABS: AMMONIA < 17 uMol/L (<32)
[2024-09-04 20:00] VITALS: BP 124/59; PULSE 99; RESP 16; TEMP 38.4; O2SAT 95
[2024-09-05] VITALS (15 sets, daily range): BP systolic 100–128; BP diastolic 48–89; PULSE 75–98; RESP 17–18; TEMP 36.4–37; O2SAT 95–99
[2024-09-05 09:37] LABS: BASOPHILS % 0.3 % (0.0-2.0); EOSINOPHILS % 1.2 % (0.0-5.0); HEMATOCRIT. 24.5 % (42.0-52.0); HEMOGLOBIN. 7.6 g/dL (14.0-18.0); LYMPHOCYTES % 13.9 % (20.0-50.0); MEAN CORPUSCULAR HEMOGLOBIN 21.1 pg (28.0-32.0); MEAN CORPUSCULAR VOLUME 68.1 fL (80.0-94.0); MEAN PLATELET VOLUME 8.5 fl (7.4-10.4); NEUTROPHILS % 78.6 % (40.0-76.0); PLATELET 615 x1000/uL (130-400); RED CELL DISTRIBUTION WIDTH 18.4 % (11.6-14.6); WHITE BLOOD COUNT 19.8 x1000/uL (4.5-11.0)
[2024-09-05 09:40] LABS: DIFFERENTIAL COMMENT 1
[2024-09-05 09:41] LABS: ADD RBC MORPHOLOGY NO
[2024-09-05 10:24] LABS: POTASSIUM 3.3 mEq/L (3.5-5.1)
[2024-09-05 10:30] LABS: CREATININE 1.9 mg/dL (0.6-1.3)
[2024-09-05] MEDS: KCL 20MEQ/100ML PREMIX 100 ML IV SCH (15:12)
[2024-09-06] VITALS: BP 121/67; PULSE 98; RESP 18; TEMP 36.9; O2SAT 95
[2024-09-06 04:00] VITALS: BP 114/57; PULSE 99; RESP 19; TEMP 36.7; O2SAT 98
[2024-09-06] MEDS ORDERED: BACITRACIN 14GM TUBE TOP ONE (06:39)
[2024-09-06] MEDS ORDERED: LIDOCAINE HCL 1% 10 MG/ML 10ML VIAL ONE (06:39)
[2024-09-06] MEDS ORDERED: BUPIVACAINE HCL/PF 0.5% (5MG/ML) 10ML ONE (06:40)
[2024-09-06] MEDS ORDERED: LIDOCAINE HCL/PF 1% 10 MG/ML 5ML VIAL ONE (07:35)
[2024-09-06] MEDS ORDERED: DEXAMETHASONE 4MG/ML 1ML VIAL ONE (07:35)
[2024-09-06] MEDS ORDERED: ONDANSETRON HCL 4MG/2ML INJ ONE (07:35)
[2024-09-06] MEDS ORDERED: FENTANYL CITRATE/PF 50MCG/ML 2ML VIAL ONE (07:36)
[2024-09-06] MEDS ORDERED: PROPOFOL 200MG/20ML VIAL IV ONE (07:36)
[2024-09-06] MEDS ORDERED: POLYMYXIN B SULFATE 500000 UNITS/VIAL ONE (08:16)
[2024-09-06] MEDS ORDERED: FENTANYL CITRATE/PF 50MCG/ML 2ML VIAL IV PRN (08:45)
[2024-09-06] MEDS ORDERED: HYDROMORPHONE HCL/PF 1MG/ML INJ IV PRN (08:45)
[2024-09-06] MEDS ORDERED: ONDANSETRON HCL 4MG/2ML INJ IV PRN (08:45)
[2024-09-06] MEDS ORDERED: NALOXONE HCL 0.4MG/ML VIAL IV PRN (09:45)
[2024-09-06 11:26] LABS: DIFFERENTIAL COMMENT 1; HEMATOCRIT. 30.7 % (42.0-52.0); HEMOGLOBIN. 9.9 g/dL (14.0-18.0); MEAN CORPUSCULAR HEMOGLOBIN 23.2 pg (28.0-32.0); MEAN CORPUSCULAR HGB CONC 32.3 g/dL (31.0-37.0); PLATELET 640 x1000/uL (130-400); RED BLOOD CELL COUNT 4.27 mill/uL (4.7-6.1); RED CELL DISTRIBUTION WIDTH 21.3 % (11.6-14.6); WHITE BLOOD COUNT 17.8 x1000/uL (4.5-11.0)
[2024-09-06 11:38] LABS: CHLORIDE 111 mEq/L (98-107); SODIUM 143 mEq/L (136-145)
[2024-09-06 11:39] LABS: CARBON DIOXIDE 23 mEq/L (21-32)
[2024-09-06 11:44] LABS: CREATININE 1.6 mg/dL (0.6-1.3); GLUCOSE 124 mg/dL (70-105); UREA NITROGEN BLOOD 20 mg/dL (9-23)
[2024-09-06 12:00] VITALS: BP 105/58; PULSE 75; RESP 19; TEMP 36.3; O2SAT 97
[2024-09-06] MEDS: MORPHINE SULFATE 4 MG/ML INJ (FOR IV/IM USE) IV PRN (14:31)
[2024-09-06 14:56] LABS: ANISOCYTOSIS 2+; MICROCYTOSIS 1+; PLATELET ESTIMATE INCREASED
[2024-09-06 16:00] VITALS: BP 104/54; PULSE 72; RESP 19; TEMP 36.6; O2SAT 97
[2024-09-06 20:00] VITALS: BP 98/57; PULSE 57; RESP 17; TEMP 36.1; O2SAT 98
[2024-09-07 08:00] VITALS: BP 99/56; PULSE 70; RESP 16; TEMP 36.2; O2SAT 99
[2024-09-07 10:37] LABS: BASOPHILS % 0.2 % (0.0-2.0); DIFFERENTIAL COMMENT 0; EOSINOPHILS % 1.3 % (0.0-5.0); HEMATOCRIT. 29.3 % (42.0-52.0); HEMOGLOBIN. 9.1 g/dL (14.0-18.0); MEAN CORPUSCULAR HEMOGLOBIN 22.7 pg (28.0-32.0); MEAN CORPUSCULAR HGB CONC 31.1 g/dL (31.0-37.0); MEAN CORPUSCULAR VOLUME 73.2 fL (80.0-94.0); MEAN PLATELET VOLUME 8.3 fl (7.4-10.4); MONOCYTES % 5.8 % (2.0-8.0); NEUTROPHILS % 74.7 % (40.0-76.0); PLATELET 630 x1000/uL (130-400); RED CELL DISTRIBUTION WIDTH 21.9 % (11.6-14.6); WHITE BLOOD COUNT 13.3 x1000/uL (4.5-11.0)
[2024-09-07 10:57] LABS: POTASSIUM 3.5 mEq/L (3.5-5.1)
[2024-09-07 10:59] LABS: CALCIUM 7.7 mg/dL (8.7-10.4)
[2024-09-07] MEDS: SODIUM CHLORIDE 0.9% 500 ML IV ONE (11:00)
[2024-09-07 11:03] LABS: CREATININE 1.6 mg/dL (0.6-1.3)
[2024-09-07 12:00] VITALS: BP 107/57; PULSE 82; RESP 17; TEMP 36.3; O2SAT 97
[2024-09-07 16:00] VITALS: BP 96/50; PULSE 65; RESP 16; TEMP 36.2; O2SAT 98
[2024-09-07 20:37] VITALS: BP 107/51; PULSE 77; RESP 20; TEMP 36.6; O2SAT 96
[2024-09-08] VITALS: BP_SYST 106; BP_SYST 113; BP_DIAS 61; BP_DIAS 63; PULSE 67; PULSE 82; RESP 19; RESP 20; TEMP 36.6; O2SAT 94; O2SAT 98
[2024-09-08 04:00] VITALS: BP 126/59; PULSE 81; RESP 16; TEMP 36.9; O2SAT 95
[2024-09-08 07:35] LABS: CARBON DIOXIDE 22 mEq/L (21-32); CHLORIDE 107 mEq/L (98-107); POTASSIUM 3.2 mEq/L (3.5-5.1); SODIUM 139 mEq/L (136-145)
[2024-09-08 07:37] LABS: CALCIUM 8.1 mg/dL (8.7-10.4)
[2024-09-08 07:41] LABS: CREATININE 1.4 mg/dL (0.6-1.3); GLUCOSE 99 mg/dL (70-105); UREA NITROGEN BLOOD 23 mg/dL (9-23)
[2024-09-08 08:00] VITALS: BP 120/65; PULSE 93; RESP 18; TEMP 36.4; O2SAT 96
[2024-09-08 08:05] LABS: BASOPHILS % 0.3 % (0.0-2.0); EOSINOPHILS % 3.3 % (0.0-5.0); HEMOGLOBIN. 9.3 g/dL (14.0-18.0); LYMPHOCYTES % 22.9 % (20.0-50.0); MEAN CORPUSCULAR HEMOGLOBIN 22.9 pg (28.0-32.0); MEAN CORPUSCULAR HGB CONC 31.9 g/dL (31.0-37.0); MEAN CORPUSCULAR VOLUME 71.9 fL (80.0-94.0); MEAN PLATELET VOLUME 8.1 fl (7.4-10.4); MONOCYTES % 6.1 % (2.0-8.0); NEUTROPHILS % 67.4 % (40.0-76.0); PLATELET 664 x1000/uL (130-400); RED BLOOD CELL COUNT 4.04 mill/uL (4.7-6.1); WHITE BLOOD COUNT 10.5 x1000/uL (4.5-11.0)
[2024-09-08 09:27] LABS: DIFFERENTIAL COMMENT 1
[2024-09-08 12:00] VITALS: BP 109/66; PULSE 80; RESP 16; TEMP 36.4; O2SAT 97
[2024-09-08] MEDS: POTASSIUM CHLORIDE 20MEQ TABLET SR PO SCH ×2 (14:30)
[2024-09-08 16:00] VITALS: BP 105/54; PULSE 74; RESP 16; TEMP 36.4; O2SAT 96
[2024-09-08 17:09] VITALS: BP 105/54; PULSE 74; TEMP 97.6; O2SAT 96
[2024-09-08] MEDS ORDERED: APIXABAN 5 MG TABLET PO SCH (21:00)
== END 2024-09-08 17:20 | DRG 853 ==
LOC: ER 22:34 → 5EST 08-23 02:52 → EDBEDREQTM 08-23 03:03 → EDBEDREQ 08-23 03:03 → ENRESERV 08-23 03:45 → 6WST 08-31 11:30
PROVIDERS: ADMIT Internal Medicine; ATTEND Internal Medicine
PROC: 0DH63UZ Insertion of Feeding Device into Stomach, Percutaneous Approach (ICD-10-PCS; 2024-09-03)
PROC: 30233N1 Transfusion of Nonautologous Red Blood Cells into Peripheral Vein, Percutaneous Approach (ICD-10-PCS; principal; 2024-09-05)
PROC: 0Y6G0ZZ Detachment at Left Knee Region, Open Approach (ICD-10-PCS; 2024-09-06)
DX: A41.59 Other Gram-negative sepsis (principal); G93.41 Metabolic encephalopathy; J96.01 Acute respiratory failure with hypoxia; N17.0 Acute kidney failure with tubular necrosis; J69.0 Pneumonitis due to inhalation of food and vomit; E87.0 Hyperosmolality and hypernatremia; E87.20 Acidosis, unspecified; I13.0 Hypertensive heart and chronic kidney disease with heart failure and stage 1 through stage 4 chronic kidney disease, or unspecified chronic kidney disease; N39.0 Urinary tract infection, site not specified; I82.432 Acute embolism and thrombosis of left popliteal vein; I82.412 Acute embolism and thrombosis of left femoral vein; E11.52 Type 2 diabetes mellitus with diabetic peripheral angiopathy with gangrene; E46 Unspecified protein-calorie malnutrition; E86.0 Dehydration; D50.9 Iron deficiency anemia, unspecified; I50.9 Heart failure, unspecified; N18.9 Chronic kidney disease, unspecified; G40.909 Epilepsy, unspecified, not intractable, without status epilepticus; I71.40 Abdominal aortic aneurysm, without rupture, unspecified; E78.5 Hyperlipidemia, unspecified; E87.5 Hyperkalemia; K21.9 Gastro-esophageal reflux disease without esophagitis; R62.7 Adult failure to thrive; E83.51 Hypocalcemia; E11.22 Type 2 diabetes mellitus with diabetic chronic kidney disease; E11.65 Type 2 diabetes mellitus with hyperglycemia; N20.0 Calculus of kidney; N13.9 Obstructive and reflux uropathy, unspecified; D63.1 Anemia in chronic kidney disease; E87.6 Hypokalemia; F03.90 Unspecified dementia, unspecified severity, without behavioral disturbance, psychotic disturbance, mood disturbance, and anxiety; R65.20 Severe sepsis without septic shock; J44.9 Chronic obstructive pulmonary disease, unspecified; I27.20 Pulmonary hypertension, unspecified; R13.12 Dysphagia, oropharyngeal phase; Z68.23 Body mass index [BMI] 23.0-23.9, adult; Z79.82 Long term (current) use of aspirin; Z86.73 Personal history of transient ischemic attack (TIA), and cerebral infarction without residual deficits; Z79.899 Other long term (current) drug therapy; Z74.01 Bed confinement status
CPT/HCPCS: 36415; 36600; 71045; 75635; 76705; 76770; 80048; 80053; 80061; 80076; 81003; 82040; 82140; 82330; 82375; 82550; 82607; 82728; 82746; 82805; 82962; 83036; 83540; 83550; 83605; 83735; 83880; 84100; 84132; 84145; 84207; 84439; 84443; 84484; 85018; 85025; 86850; 86900; 86920; 87077; 87186; 88307; 88311; 92610; 93005; 93306; 93922; 93970; 94070; 94640; 94760; 96365; 96368; 96375; 97110; 97162; 97166; 97530; 98960; 99291; A4606; J0610; J0665; J0690; J1100; J1308; J1650; J1815; J2003; J2020; J2185; J2270; J2405; J2470; J2543; J2704; J3010; J3370; J3480; J3490; J7030; J7060; J7070; P9016; Q9967